=== PATIENT | male | born 1960 | race Caucasian/White ===

== ENCOUNTER 2017-12-16 09:40 | Emergency (ER) | payer MEDICAID ==
[~2017-12-16] VITALS: Ht 180.3 cm; Wt 81.7 kg
[~2017-12-16 09:40] MED LIST: ATIVAN1 MG PO; BUSPIRONE HCL10 MG PO; CARAFATE 1 GM TA1 G1 PO; DEXILANT60 MG PO; FLEXERIL PO; GABAPENTIN 100100 MG PO; HYDROCODONE-AP1 EAC6 PO; KEFLEX500 MG PO; KLOR-CON 1010 MEQ PO; LASIX 20 MG TAB20 MG PO; LEVAQUIN 500 M500 M2 PO; MAGOX 400400 MG PO; MOBIC15 MG PO; NOHOMEMEDICATIONS; OMEPRAZOLE40 MG PO; PANTOPRAZOLE SO40 M1 PO; POTASSIUM20 PO; PRILOSEC 20 MG20 MG PO; PROTONIX40 M1 PO; SLEEPING PILL PO; TRAMADOL 50 MG50 MG PO; XANAX 0.5 MG0.5 M1 PO; XANAX 0.5 MG0.5 MG PO; XANAX1 MG PO; ZOFRAN ODT4 MG PO; ZOLOFT25 MG PO
[2017-12-16 09:47] VITALS: BP 140/84
[2017-12-16] MEDS ORDERED: FLEXERIL PO (09:57)
[2017-12-16] MEDS ORDERED: ULTRAM 50MG TAB50 MG PO (09:57)
[2017-12-16] MEDS ORDERED: PREDNISONE 20 M20 M1 PO (09:57)
== END 2017-12-16 10:13 | disposition home or self-care (01) ==
LOC: M.ERS 09:40
DX: M54.5 Low back pain (principal); M41.9 Scoliosis, unspecified; F17.210 Nicotine dependence, cigarettes, uncomplicated; Z90.49 Acquired absence of other specified parts of digestive tract

== ENCOUNTER 2018-08-26 15:41 | Emergency (ER) | payer OTHER | END 2018-08-26 17:26 | disposition home or self-care (01) | LOC: M.ERS 15:41 | DX: S16.1XXA Strain of muscle, fascia and tendon at neck level, initial encounter (principal); S00.83XA Contusion of other part of head, initial encounter; M54.6 Pain in thoracic spine; M41.9 Scoliosis, unspecified; F17.210 Nicotine dependence, cigarettes, uncomplicated; Z90.49 Acquired absence of other specified parts of digestive tract; W22.8XXA Striking against or struck by other objects, initial encounter; Y93.89 Activity, other specified; Y92.89 Other specified places as the place of occurrence of the external cause; Y99.8 Other external cause status ==

== ENCOUNTER 2018-12-29 11:30 | Inpatient (IN) | payer OTHER, MEDICAID ==
[~2018-12-29] VITALS: Ht 180.3 cm; Wt 67.1 kg
[2018-12-29] VITALS (10 sets, daily range): BP systolic 93–124; BP diastolic 70–87
--- NOTE | ~2018-12-29 | PROC ---
[facility] [address] [place] [address] PROCEDURE REPORT Name: KEYLA LOPEZ Room: [facility] ADM IN M.R.#: [id number] Admission: 12/29/18 Attend Phys: Ramon Wright Discharge: Date of : 64 Report #: [id number] THIS REPORT FOR: //name// For GI report, please see the Provation report in Perceptive 7 content. By: 0649Medical Records Staff KEMAL /LIZZETTE
[~2018-12-29 11:30] MED LIST changes: +ACETAMINOPHEN-1 EAC1 PO; +PREDNISONE 20 M20 M1 PO; +ULTRAM 50MG TAB50 MG PO
[2018-12-29 12:19] LABS: HEMATOCRIT 38.9 % (42.0-52.0); HEMOGLOBIN 14.3 gm/dL (14.0-18.0); MCH 35.5 pg (26.0-34.0); MCHC 36.7 g/dL (28.0-37.0); MCV 96.5 fL (80.0-100.0); MPV 7.3 fl. (7.2-11.1); NUCLEATED RBCS 0 /100WBC; PLATELET COUNT* 261 thou/uL (150-400); RBC 4.03 mil/uL (4.50-6.00)
[2018-12-29 12:28] LABS: CALCIUM 10.1 mg/dL (8.5-10.1); CREATININE 1.2 mg/dL (0.6-1.3)
[2018-12-29 12:32] LABS: BE -1.5 mmol/L (-2 to +3); PCO2 28.2 mmHg (35.0-45.0); pH 7.482 (7.340-7.450)
[2018-12-29 12:33] LABS: POTASSIUM 2.4 mmol/L (3.5-5.1)
[2018-12-29 12:35] LABS: PO2 154.7 mmHg (75.0-100.0)
[2018-12-29 12:37] LABS: APTT 26.6 Seconds (25.0-31.3)
[2018-12-29 12:38] LABS: ALBUMIN 2.7 g/dL (3.4-5.0); MAGNESIUM 1.7 mg/dL (1.8-2.4); TOTAL BILIRUBIN 1.1 mg/dL (<0.1-1.0); TOTAL PROTEIN 8.2 g/dL (6.4-8.2)
[2018-12-29 13:03] LABS: INFLUENZA A ANTIGEN Negative (Negative); INFLUENZA B ANTIGEN Negative (Negative)
[2018-12-29 13:44] LABS: ABSOLUTE LYMPHOCYTES 0.4 thou/uL (0.8-5.3); ABSOLUTE MONOCYTES 0.8 thou/uL (0.0-1.2); ABSOLUTE NEUTROPHILS 8.8 thou/uL (1.6-8.1); PLATELET ESTIMATE ADEQUATE
--- NOTE | 2018-12-29 17:12 | EKG ---
[place] [address] ELECTROCARDIOGRAM REPORT Name: KEYLA LOPEZ Room: [address] ADM IN .R.#: [id number] Admission: 12/29/18 Attend Phys: Ramon Wright Discharge: Date of : 64 Report #: [id number] THIS REPORT FOR: //name// [facility] ED Test Date: 2018-12-29 Test Time: 11:41:43 Pat Name: KEYLA LOPEZ Department: Room: [facility] Gender: M Clinical Immunologist: : 1960 Requested By: Cceilio Cherry Order Number: [id number] MD: Malcolm Guevara Measurements Intervals [place] Rate: 94 P: 86 MS: 146 QRS: 72 QRSD: 85 T: 263 QT: 344 QTc: 431 Interpretive Statements Sinus tachycardia Atrial premature complexes Probable left atrial enlargement Possible anterior infarct, old Abnormal T, consider ischemia, diffuse leads Compared to ECG 12/06/2016 22:34:26 Atrial premature complex(es) now present Myocardial infarct finding now present ST (T wave) deviation now present T-wave abnormality now present Possible ischemia now present Electronically Signed On 12-29-2018 17:12:03 [employer] TE[employer] by Malcolm Guevara [email or web address] <ELECTRONICALLY SIGNED> By: Malcolm Guevara MD, FACC 12/29/18 1712 1141 1141 Malcolm Guevara MD, FAC /EPI
--- NOTE | 2018-12-29 18:00 | NUR ---
PT RECEIVED FROM ER AT 1608, A&O X4. AIRBORNE PRECAUTIONS FOR SUSPECTED TB INITIATED. VSS. ELECTROLYTES REPLACEMENT CONTD. VOIDS PER URINAL. ATE 5% OF HIS DINNER. ADMISSION PROCESS COMPLETED.
[2018-12-29 19:26] LABS: CALCIUM 9.2 mg/dL (8.5-10.1); CREATININE 1.1 mg/dL (0.6-1.3); MAGNESIUM 1.6 mg/dL (1.8-2.4)
[2018-12-29 19:27] LABS: POTASSIUM 2.5 mmol/L (3.5-5.1)
[2018-12-30] VITALS (16 sets, daily range): BP systolic 104–123; BP diastolic 73–84
[2018-12-30 05:39] LABS: CALCIUM 9.2 mg/dL (8.5-10.1)
[2018-12-30 05:43] LABS: POTASSIUM 4.2 mmol/L (3.5-5.1)
--- NOTE | 2018-12-30 06:31 | NUR ---
ASSESSMENTS CHARTED. PATIENT REMAINED IN BED FOR DURATION OF THE SHIFT AND SLEPT FOR ABOUT 3 HOURS. PATIENT STILL HAS DIFFICULTY SWALLOWING UNLESS HE IS TAKING IN WARM LIQUIDS. PATIENT HAS DIFFICULTY SWALLOWING PILLS, FOR THIS REASON ELECTROLYTES WERE REPLACED SOLELY THROUGH THE IV. PATIENT HAS BEEN EXPERIENCING PAIN IN THE NECK AND HEAD, ADMINISTERED ONETIME DOSE OF MORPHINE. AWAITING RESPONSE FROM PHYSICIAN FOR SUBSEQUENT DOSES. PATIENT USING URINAL WELL. REMAINS IN ISOLATION PRECAUTIONS. [facility]
--- NOTE | 2018-12-30 08:37 | NUR ---
LATE ENTRY FOR 12/29 FROM ER ASKING CM TO BRING DPOA PAPERS TO PT. HE WOULD LIKE TO FILL OUT DPOA. FAMILY WITH PT. INFORMED HE WOULD BE TRANSFERRING TO ICU ANYTIME. CM WENT TO ICU AND PT.NOT THERE YET. LEFT DPOA FORM WITH JASON AND ASKED SHE GIVE TO PT.AND/OR FAMILY . CALL FOR NOTARY BEFORE PT.SIGNS.
[2018-12-30 10:04] LABS: ABSOLUTE LYMPHOCYTES 0.1 thou/uL (0.8-5.3); ABSOLUTE MONOCYTES 0.2 thou/uL (0.0-1.2); ABSOLUTE NEUTROPHILS 6.2 thou/uL (1.6-8.1); BASOPHILS 0.1 %; HEMATOCRIT 32.7 % (42.0-52.0); HEMOGLOBIN 11.8 gm/dL (14.0-18.0); LYMPHOCYTES 2.3 %; MCH 35.1 pg (26.0-34.0); MCV 97.5 fL (80.0-100.0); MONOCYTES 2.3 %; MPV 7.3 fl. (7.2-11.1); NUCLEATED RBCS 0 /100WBC; PLATELET COUNT* 209 thou/uL (150-400); POLYS 95.3 %; RBC 3.36 mil/uL (4.50-6.00); RDW-CV 12.1 % (10.5-14.5); WBC 6.5 thou/uL (4.0-11.0)
--- NOTE | 2018-12-30 11:28 | NUR ---
ICU rounds: Pt has not been eating for the past 3 weeks. Pt to have video swallow today. Continue banana bag and saline. On airborne precautions d/t lung mass, possible undx TB. Pending sputum, respiratory to see. DPOA completed yesterday. No roseann. Spoke with , anticipate that Pt [place] need [place] Tele status. Pt completing testing in room, CM to attempt to assess later
--- NOTE | 2018-12-30 13:34 | NUR ---
RIGHT BASILIC VESSEL ACCESSED FOR DUAL LUMEN PICC. LINE PRE-TRIMMED TO 40CM AND ADVANCED TO THE ZERO KEYLA WITH NO RESISTANCE MET. UPPER ARM CIRCUMFERENCE ABOVE INSERTION SITE= 9". SHERLOCK MAGNET AND 3CG CONFIRMATION OF TIP TERMINATION AT THE CAVOATRIAL JUNCTION APPRECIATED. STYLET REMOVED, LINE FLUSHED AND INSERTION SITE DRESSED. REPORT GIVEN TO JASON FRANCO.
--- NOTE | 2018-12-30 15:00 | NUR ---
URINE RESIDUAL >250 MLS THREE TIMES AND PT IS INCONTINENT. BARNES CATH, 16 FR INSERTED PER ORDER, DRAINING YELLOW URINE.
--- NOTE | 2018-12-30 17:17 | NUR ---
PASSED SWALLOW TEST AND DYSPHAGIA MORE RELATED TO PAIN PER SPEECH THERAPIST. VSS. O2 SUPPORT AT 2L/MIN. Q2 TURNS FOR SKIN INTEGRITY. SPUTUM CULTURE AND AFB PENDING PT NOT EXPECTORATING ANY SPUTUM. ISOLATION MAINTAINED. FAMILY UPDATED. NS CONTD AT 100 MLS/HR AND MULTIVITAMIN AT 40 MLS/HR. GOOD URINE OUTPUT.
[2018-12-31 02:10] LABS: GLYCOHEMOGLOBIN (HGB A1C) 5.8 % (4.8-5.6)
[2018-12-31 03:31] LABS: HEMOGLOBIN 10.3 gm/dL (14.0-18.0); MCH 35.3 pg (26.0-34.0); MCHC 35.5 g/dL (28.0-37.0); MCV 99.3 fL (80.0-100.0); MPV 6.8 fl. (7.2-11.1); RBC 2.92 mil/uL (4.50-6.00); RDW-CV 12.1 % (10.5-14.5); WBC 7.2 thou/uL (4.0-11.0)
[2018-12-31 03:40] LABS: CALCIUM 8.1 mg/dL (8.5-10.1); CREATININE 0.9 mg/dL (0.6-1.3); POTASSIUM 3.9 mmol/L (3.5-5.1)
--- NOTE | 2018-12-31 05:48 | NUR ---
ASSESSMENT CHARTED. PATIENT REMAINED IN BED POSITIONED COMFORTABLY THROUGH THE SHIFT. PATIENT REMAINED NPO FOR THE NIGHT. DURING MIDNIGHT DOSE OF NYSTATIN, THE PATIENT SWALLOWED HALF THE DOSE AND NEARLY ASPIRATED WHAT WAS LEFT. FOR THIS REASON, THE 0600 DOSE WAS HELD. PATIENT HAS BEEN INCREASINGLY WITHDRAWN. CATHETER IN PLACE, NO URNIE OUTPUT RECORDED FOR THE SHIFT. BLADDER SCAN INDICATES SCANT AMOUNT OF URINE IN BLADDER.
[2018-12-31 08:00] VITALS: BP 116/75
--- NOTE | 2018-12-31 08:09 | CON ---
[address] [address] CONSULTATION Name: KEYLA LOPEZ Tiffanie Room: [address] IN M.R.#: [id number] Admission: 12/29/18 Attend Phys: Ramon Wright Discharge: Date of : 64 Report #: [id number] THIS REPORT FOR: //name// CC: Shai Villarreal DATE OF SERVICE: 12/30/2018 REQUESTING PHYSICIAN: Foster Villarreal DO REASON FOR CONSULTATION: Cavitary lesion, right upper lobe. DISCUSSION: The patient is a 58-year-old man with a past history of alcohol and tobacco abuse. Unfortunately, he is not a very good historian and is somewhat vague with his responses. He presented to the Emergency Department yesterday with complaints of increasing weakness, shortness of breath, difficulty swallowing. He has felt nauseated, but has been unable to vomit. He has had some right-sided chest pain. He is not aware of any fevers at home. Denies coughing up any sputum. Consequently, no hemoptysis. He notes he has felt like he needed to vomit, but has been unable to do so. He has not noted any blood in his stools. He has had difficulty trying to take much to eat. Unknown when he last had true solid food. He has been drinking primarily warm beverages. He states he has lost about 20 pounds over the last several weeks. Saw his family physician several weeks ago. Some of the history I obtained is different than what the ED did as well as Dr. Villarreal. Again, however, question some of the reliability. He does have a history of alcohol abuse, but notes his last drink was about 7 months ago. Longtime smoker, though it has been several weeks since he has had a cigarette due to increased shortness of breath. He was in the process of cutting back. When he was evaluated in the Emergency Department, was found to be hyponatremic with sodium down to 119. Some of his LFTs were abnormal. White count was normal. He was not anemic. Imaging studies were done. No pulmonary emboli were noted. Did have a thick-walled right upper lobe cavitary lesions seen. There is evidence of old calcified granulomatous disease as well. This was not seen on CT chest done 2 years ago. He denies any history of TB or exposure to tuberculosis. Reviewing old records in our computer system here, he did have a negative T-SPOT in 2017. He notes he was in [facility] about 3 weeks ago, but it was for only a day. From the history I get, it does not appear he has had any prolonged episodes of incarceration. No service. 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 The history, we have, he was last hospitalized here [place] [address] CONSULTATION Name: EUNKEYLA CAMEJO Tiffanie Room: [address] IN [facility].#: [id number] Admission: 12/29/18 Attend Phys: Ramon Wright Discharge: Date of : 64 Report #: [id number] found to have significant esophagitis. However, could not afford to take a b.i.d. PPI. EGD done at that time did reveal also a stricture in the distal esophagus. They were unable to dilate well. He had a distal esophageal ulcer. It does not appear that he had any followup endoscopies done. He does have chronic back pain, prior episodes of GI bleeding, pancreatitis, acute renal failure in the past, history of DTs associated with alcohol withdrawal and seizures. Has scoliosis and has had back surgery. REVIEW OF SYSTEMS: ROS was done. States he has lost about 20 pounds over the last several weeks. Denies vomiting to me, but the ED notes indicate that he was vomiting. He notes he has had trouble remembering things been short of breath. Besides chronic back pain, he has also had some right chest pain. He has felt nauseated. Denies blood in his stools. He did have onset of lower extremity edema. He has not had any recent dental work done or seen a dentist. He denies any syncopal episodes. Denies recent falls. SOCIAL HISTORY: States he lives alone. No alcohol for 7 months. He is wearing an ankle bracelet to monitor him for alcohol consumption. He is in [facility] briefly about 3 weeks ago per patient. FAMILY HISTORY: Denies any lung problems. PHYSICAL EXAMINATION: GENERAL APPEARANCE: A male who looks older than stated age. Somewhat lethargic, but is responsive. At times, is slow to respond to the questions. HEENT: Head is normocephalic. Sclerae nonicteric. Mucous membranes are dry. dentition is poor. Does have evidence of some oral candidiasis. NECK: Without any cervical adenopathy. Neck veins are little prominent. No supraclavicular adenopathy. HEART: Regular. No S3 is heard. He has a grade 1/6 systolic murmur. LUNGS: Reveal breath sounds to be somewhat diminished with a prolonged expiratory phase. No wheezing or crackles are heard. No rub. ABDOMEN: Soft. Denies any tenderness to palpation. EXTREMITIES: Upper extremities are thin with muscle wasting. He does have trace edema in the lower extremities. SKIN: Turgor is fair. LABORATORY AND X-RAY FINDINGS: Admission sodium yesterday was 119 up to 122 today. Creatinine was 1.2 yesterday, improved to 1.0 today. Serum bicarbonate this morning is 13. Transaminases are normal. Total bilirubin was 1.1. Albumin is 2.7, total protein is 8.2, calcium 10.1. ProBNP just over 1500. White blood cell count yesterday 10,000, today 6500, hemoglobin 11.8, hematocrit of 32.7, platelets 209,000. Does have a left shift. Appears to have a lymphopenia noted previously. Influenza screen was negative. Prealbumin is only 8.4. A T-SPOT 2017 was negative. HIV done 2 years ago was negative. Blood cultures were sent, no growth to date. I do note [place] [address] CONSULTATION Name: KEYLA LOPEZ Room: [address] IN [facility]#: [id number] Admission: 12/29/18 Attend Phys: Raomn Wright Discharge: Date of : 64 Report #: [id number] in 2017. At that time, he had preserved systolic function with an EF of 55%. RV was normal. He had [id number] aortic regurgitation. There was no aortic stenosis. His films were reviewed. A CT chest done yesterday with contrast was negative for evidence of pulmonary embolism. He has a thick-walled cavity, right upper lobe. It is adjacent to the pleura. This cavitary mass was not seen [address] chest imaging at that time. He had however CT scans done of his cervical and thoracic spine in August of this year. I reviewed those studies, I do not see any lesions in the right upper lobe. Though the area in question is not completely visible on those studies, none of it certainly does not appear that it was present. It is also noted to have marked thickening of his esophagus. Scan done of his abdomen showed possible liver lesion, not noted previously. Areas of mildly dilated small bowel were noted suspicious for an ileus or enteritis. IMPRESSION: 1. A thick walled cavity, right upper lobe. It does not appear that it was present in August of this year on bone imaging studies. If that is the case, would think malignancy would be somewhat less likely given the large size of this mass. Raise the question of an infectious or inflammatory process. Right upper lobe cavitary lesions can be suspicious for tuberculosis. Do note TB SPOT done 2 years ago, however, was negative. With his history, does appear that he is at very high risk for aspiration. Between his dysphagia as well as severe esophagitis. Prior HIV testing was negative. 2. Protein-calorie malnutrition. Note low albumin. However, does appear to have a higher protein and what would be expected. Calcium level though in the "normal range" probably actually higher given the low albumin level. 3. Hyponatremia, improving. 4. History of alcohol abuse. Reportedly, has been off alcohol for 7 months. If that is the case, not likely to have issues with withdrawal, etc. 5. History of tobacco abuse. 6. Weight loss, it is difficult to truly quantitate how much. He has been reviewing his old weights in the computer system here, there are such huge swings in relatively short periods of time. I questioned the reliability of those. This can be due to poor caloric intake. Could also have an occult malignancy. RECOMMENDATIONS: 1. Discussed with Dr. Da Silva. Can transfer out of ICU. 2. Check QuantiFERON Gold. 3. Sputum cultures if able to obtain. 4. Also check fungal serology. 5. Follow up lab and culture results. 6. Agree with rechecking HIV. 7. At this point, would hold on any type of a biopsy of this right upper lobe lesion. Would not be accessible via bronchoscopy. Could consider having IR evaluate in the future. [address] [address] CONSULTATION Name: KEYLA LOPEZ Room: [address] ADM IN M.R.#: [id number] Admission: 12/29/18 Attend Phys: Ramon Wright Discharge: Date of : 64 Report #: [id number]. May also need a followup EGD done. Metabolically, however, would need to be better condition. <ELECTRONICALLY SIGNED> By: Destiny Campbell MD 12/31/18 0809 1139 [id number] Campbell MD /nt
[2018-12-31 10:09] LABS: HEPATITIS B SURFACE AG Negative (Negative)
[2018-12-31 10:09] LABS: HIV-1/HIV-2 ANTIBODY Non Reactive (Non Reactive)
--- NOTE | 2018-12-31 10:23 | NUR ---
ICU rounds: Pt not as alert today. EGD today. Tele status, moving to room 200. CM left VM for Pt's sister/DPOA to complete assessment, awaiting call back
--- NOTE | 2018-12-31 10:47 | NUR ---
PER [employer], PT HAS MONTHLY [place] MEDICAID WITH A SPEND DOWN. ONCE SPEND DOWN MET, PT HAS COVERAGE EACH MONTH
--- NOTE | 2018-12-31 11:15 | NUR ---
ASSUMED PT CARE AT APPROX 1115, RECVD REPORT FROM JOAN APONTE. THIS NURSE AGRRES WITH CURRENT ASSESSMENT. ORIENTED TO CALL LIGHT AND ROOM, SISTER AT BEDSIDE.
--- NOTE | 2018-12-31 11:16 | NUR ---
THIS PROJECT CREW WORKER ASSUMED CARE OF PT AT 0700 AFTER RECEIVING SHIFT REPORT. PT WAS TRANSFERED TO ROOM [address] ZIEGLER PT BELONGING AND MEDICATION WITH PT TRANSFERED VIA WHEELCHAIR WITH NURSING STAFF
--- NOTE | 2018-12-31 15:29 | CON ---
[address] [address] CONSULTATION Name: KEYLA LOPEZ Tiffanie Room: [address] IN .R.#: [id number] Admission: 12/29/18 Attend Phys: Ramon Wright Discharge: Date of : 64 Report #: [id number] THIS REPORT FOR: //name// CC: Shai Villarreal DICTATED BY: Laura Adams [facility] DATE OF SERVICE: 12/31/2018 The patient does not have a PCP. Please note at the time of this dictation, the patient was seen and physically examined by myself. REASON FOR CONSULTATION: Dysphagia, odynophagia. HISTORY OF PRESENT ILLNESS: This 58-year-old male who presented to the Emergency Room with worsening cough, shortness of air over the last 3 weeks. He states he has been having a progressive difficulty swallowing and pain with swallowing over the last 3-4 weeks in which he has only been able to take liquids in and has not been able to do any solids. The patient states he quit smoking about 3 weeks ago and he quit drinking 7 months ago. He states he has an ankle monitor that alerts people if he drinks. He has lost approximately 30 pounds over the last month. He states he has not been able to eat any solid foods and when he does, he does vomit them up. He has significant hunger pains, but has only been drinking liquids. He denies any chest pain or melena at this time, but worsening with shortness of air with movement. The patient has been seen in the past by us with the last time being in 11/2016. It was noted that he underwent an EGD, had distal esophageal ulcer with stricture that was dilated with the CRE balloon at 15 mm and biopsy, small hiatal hernia. He was recommended on double dose PPI and Carafate. He has had numerous other endoscopies showing grade D esophagitis as well in 2016 and 2017. No mention of a colonoscopy, he has ever been performed. ALLERGIES: No known drug allergies. MEDICATIONS: From home is omeprazole 1 tablet b.i.d. PAST MEDICAL HISTORY: Esophagitis, hiatal hernia, macular degeneration, portal hypertensive gastropathy, esophageal ulcers and strictures. 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 PAST SURGICAL HISTORY: Appendectomy, rods in his back. FAMILY HISTORY: Negative for any GI [place] [address] CONSULTATION Name: KEYLA LOPEZ Tiffanie Room: [address]#: [id number] Admission: 12/29/18 Attend Phys: Ramon Wright Discharge: Date of : 64 Report #: [id number] SOCIAL HISTORY: The patient states he quit smoking, but past use alcohol. He states that he quit drinking 7 months ago and denies any illegal drug use. REVIEW OF SYSTEMS: 12-point review of systems is essentially negative except what is mentioned in the HPI. PHYSICAL EXAMINATION: VITAL SIGNS: Temperature 36.8, pulse 76, respirations 15, blood pressure 110/78. HEART: Regular rate and rhythm. LUNGS: Diminished, especially in the right upper. ABDOMEN: Soft, positive bowel sounds in all 4 quadrants with no masses or tenderness noted. LABORATORY DATA: Hemoglobin on admission was 11.8, he is 10.3; white count is 7.2, platelets 182. GFR is 87. B12 is 1195. LFTs are completely normal. PT is 10. INR is 1. He did have an elevated D-dimer 2.96. CT of the abdomen and pelvis shows a liver lesion in the left lobe noted. 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 IMPRESSION: 1. Dysphagia. 2. Odynophagia. 3. Vomiting with solids. 4. Weight loss 30 pounds. 5. Shortness of air. 6. Anemia, no overt bleeding noted. 7. History of alcohol abuse, quit 7 months ago. PLAN: 1. EGD today with Dr. Romero. 2. Further recommendations to be made once the procedure has been performed. 3. Ultrasound of the abdomen to evaluate liver lesion. Thank you for allowing us to participate in this patient's care. Please do not hesitate to call with any questions in regard to this consult. Patient with history of dysphagia and weight loss. Cavitary lesion in the lung suspicious for TB. Will wait for them to rule out [place] [address] CONSULTATION Name: KEYLA LOPEZ Room: [address] IN [facility]#: [id number] Admission: 12/29/18 Attend Phys: Ramon Wright Discharge: Date of : 64 Report #: [id number] evaluation. Otherwise agree with assessment and plan as outlined by Laura Adams. <ELECTRONICALLY SIGNED> By: Carrillo Romero MD 12/31/18 1529 0956 [id number] Romero MD /nt
[2019-01-01] VITALS: BP 129/97
[2019-01-01 04:00] VITALS: BP 117/77
--- NOTE | 2019-01-01 04:44 | NUR ---
ASSUMED CARE OF PT AT 1900. PT IS CONFUSED. ORIENTED TO SELF ONLY. PT REPORTS ONGOING PAIN. PT GETTING MORPHINE FOR PAIN. PT IS IN SINUS RYTHM ON THE TELEMETRY. PT IS RESTING COMFORTABLY IN BED. RESPIRATIONS ARE EVEN AND NONLABORED. WILL CONTINUE TO MONITOR PT.
--- NOTE | 2019-01-01 13:47 | 2DMMODE ---
[place] [address] 2 D/M-MODE ECHOCARDIOGRAM Name: KEYLA LOPEZ Room: [address] IN [facility]#: [id number] Admission: 12/29/18 Attend Phys: Foster Villarreal Discharge: Date of : 64 Date of Service: 01/01/19 1346 Report #: [id number] THIS REPORT FOR: //name// APPROVED REPORT Study performed: 01/01/2019 09:48:16 EXAM: Comprehensive 2D, Doppler, and color-flow Echocardiogram Patient Location: In-Patient Room #: 200 Status: routine BSA: 1.82 HR: 81 bpm BP: 117/77 mmHg Rhythm: NSR Other Information Study Quality: Good Indications COPD Dyspnea 2D Dimensions IVSd: 8.03 (7-11mm) LVOT Diam: 21.84 (18-24mm) LVDd: 49.15 mm PWd: 8.17 (7-11mm) Ascending Ao: 33.24 (22-36mm) LVDs: 32.30 (25-40mm) Aortic Root: 34.71 mm Volumes Left Atrial Volume (Systole) LA ESV Index: 21.10 mL/m2 Aortic Valve AoV Peak Javier.: 1.03 m/s AO Peak Gr.: 4.27 mmHg LVOT Max P.84 mmHg AO Mean Gr.: 2.14 mmHg LVOT Mean P.30 mmHg LVOT Max V: 0.84 m/s AO V2 VTI: 21.75 cm LVOT Mean V: 0.52 m/s ANDREA (VTI): 2.88 cm2 LVOT V1 VTI: 16.72 cm Mitral Valve E/A Ratio: 1.60 MV Decel. Time: 142.96 [place] [address] 2 D/M-MODE ECHOCARDIOGRAM Name: KEYLA LOPEZ Room: [address] IN .R.#: [id number] Admission: 12/29/18 Attend Phys: Foster Villarreal Discharge: Date of : 64 Date of Service: 01/01/19 1346 Report #: [id number] MV E Max Javier.: 0.92 m/s MV PHT: 41.46 ms MVA (PHT): 5.31 cm2 TDI E/Lateral E': 8.36 E/Medial E': 8.36 Medial E' Javier.: 0.11 m/s Lateral E' Javier.: 0.11 m/s Pulmonary Valve PV Peak Javier.: 0.72 m/s PV Peak Gr.: 2.04 mmHg Tricuspid Valve RAP Estimate: 5.00 mmHg TR Peak Gr.: 26.43 mmHg RVSP: 31.00 mmHg PA Pressure: 31.00 mmHg Left Ventricle The left ventricle is normal size. There is normal LV segmental wall motion. There is normal left ventricular wall thickness. Left ventricular systolic function is normal. The left ventricular ejection fraction is within the normal range. LVEF is 55-60%. The left ventricular diastolic function is normal. Right Ventricle The right ventricle is normal size. The right ventricular systolic function is normal. Atria The left atrium size is normal. The right atrium size is normal. Aortic Valve Aortic valve leaflets are mildly thickened. Mild aortic regurgitation. There is no aortic valvular stenosis. Mitral Valve The mitral valve is normal in structure. Mild mitral regurgitation. No evidence of mitral valve stenosis. Tricuspid Valve The tricuspid valve is normal in structure. Mild tricuspid regurgitation. Mild pulmonary hypertension. Pulmonic Valve The pulmonary valve is normal in structure. [place] [address] 2 D/M-MODE ECHOCARDIOGRAM Name: KEYLA LOPEZ Room: [address]#: [id number] Admission: 12/29/18 Attend Phys: Foster Villarreal Discharge: Date of : 64 Date of Service: 01/01/19 1346 Report #: [id number] valvular regurgitation. Great Vessels The aortic root is normal in size. IVC is normal in size and collapses >50% with inspiration. Pericardium There is no pericardial effusion. <Conclusion> The left ventricle is normal size. There is normal left ventricular wall thickness. Left ventricular systolic function is normal. The left ventricular ejection fraction is within the normal range. LVEF is 55-60%. The left ventricular diastolic function is normal. The right ventricle is normal size. The left atrium size is normal. Aortic valve leaflets are mildly thickened. Mild aortic regurgitation. There is no aortic valvular stenosis. The mitral valve is normal in structure. Mild mitral regurgitation. The tricuspid valve is normal in structure. Mild tricuspid regurgitation. Mild pulmonary hypertension. IVC is normal in size and collapses >50% with inspiration. There is no pericardial effusion. There is normal LV segmental wall motion. <ELECTRONICALLY SIGNED> By: Hector Gregg MD, FACC 01/01/19 1346 1346 1346 Hector Gregg MD, FACC /INF
--- NOTE | 2019-01-01 14:04 | NUR ---
CM attempted to reach sister again, per Pt's brother in law, sister is at work. Pt was independent with meals, but sister assisted with cleaning and driving, Pt has lost his license. JENY to have sister call Cm.
[2019-01-01 16:48] LABS: HEMATOCRIT 28.3 % (42.0-52.0); HEMOGLOBIN 9.9 gm/dL (14.0-18.0); MCH 35.4 pg (26.0-34.0); MCHC 34.9 g/dL (28.0-37.0); MCV 101.6 fL (80.0-100.0); MPV 6.5 fl. (7.2-11.1); RBC 2.79 mil/uL (4.50-6.00); RDW-CV 12.5 % (10.5-14.5); WBC 8.1 thou/uL (4.0-11.0)
[2019-01-01 16:57] LABS: CREATININE 0.9 mg/dL (0.6-1.3); POTASSIUM 3.2 mmol/L (3.5-5.1)
--- NOTE | 2019-01-01 19:05 | NUR ---
ASSUMED PT CARE AT 0700, VSS, RA, INSTRUMENT REPAIR SPECIALIST TRACING SINUS RHYTHM. PT A&O TO SELF ONLY, STILL UNABLE TO SWALLOW FOODS/FLUIDS, EGD COMPLETED THIS SHIFT, RESULTS PENDING. EDUCATED NIGHT NURSE ON REQUESTING NUTRITION OF SOME SORT POST EGD. PT HAS STILL NOT HAD BM DISPITE SUPPOSITORY AND ENEMA. NOTIFIED, HOURLY ROUNDING AND Q2 HOUR TURNS COMPLETED.
[2019-01-02] VITALS: BP 137/95
--- NOTE | 2019-01-02 04:20 | NUR ---
ASSUMED CARE OF PT FROM THE GI LAB AT ABOUT 2130. PT WAS ALERT AND ORIENTED X 3. CONFUSED TO SITUATION. VSS. PERRLA. NO COMPLAINTS OF PAIN. PT IS UP WITH STAND BY ASSIST. PT HAS A BARNES. PT IS IN SINUS RYTHM ON THE TELEMETRY. PT IS RESTING COMFORTABLY IN BED. RESPIRATIONS ARE EVEN AND NONLABORED. WILL CONTINUE TO MONITOR PT.
--- NOTE | 2019-01-02 05:53 | NUR ---
PT IS NOW REFUSING MEDS AND IV FLUIDS. RISKS OF REFUSAL EXPLAINED TO PT. PT YELLED FOR ME TO LEAVE HIS ROOM.
[2019-01-02 08:00] VITALS: BP 118/83
[2019-01-02 08:11] LABS: CALCIUM 8.3 mg/dL (8.5-10.1); CREATININE 0.9 mg/dL (0.6-1.3); MAGNESIUM 1.8 mg/dL (1.8-2.4)
[2019-01-02 12:00] VITALS: BP 121/85
[2019-01-02 16:00] VITALS: BP 103/71
--- NOTE | 2019-01-02 18:30 | NUR ---
RECEIVED REPORT FROM LASHAWN FRANCO. ASSUMED CARE OF PT AROUND 0730. PT ALERT TO SELF, MONTH AND YEAR, CONFUSED TO SITUATION. FORGETFUL. VSS. COMMUNITY CULTURAL DEVELOPMENT OFFICER IN PLACE TRACING SR TO ST WITH NO CHANGES THIS SHIFT. AM ASSESSMENT AND VITALS COMPLETED CHARTED. BOLA PICC INTACT AND INFUSING IVF PER EMAR. PT HAD TWO WATERY BMS THIS SHIFT. ISOLATION MAINTAINED. POOR APPETITE, THOUGH PT HAS BEEN ABLE TO TOLERATE FULL LIQUID DIET AND HAS BEEN ABLE TO SWALLOW PILLS. PT HAS DENIED PAIN THIS SHIFT. CT HEAD AND XRAY CHEST COMPLETED. SEE RESULTS. PT HOPING TO GO HOME SOON. FALL PRECAUTIONS IN PLACE. CALL LIGHT IS WITHIN REACH. HOURLY ROUNDING PERFORMED.
[2019-01-02 19:40] VITALS: BP 115/84
[2019-01-03] VITALS (8 sets, daily range): BP systolic 73–111; BP diastolic 39–72
[2019-01-03 05:09] LABS: HEMATOCRIT 27.7 % (42.0-52.0); HEMOGLOBIN 9.7 gm/dL (14.0-18.0); MCH 34.9 pg (26.0-34.0); MCV 99.6 fL (80.0-100.0); MPV 7.2 fl. (7.2-11.1); RBC 2.78 mil/uL (4.50-6.00); RDW-CV 12.6 % (10.5-14.5); WBC 5.9 thou/uL (4.0-11.0)
[2019-01-03 05:47] LABS: ALBUMIN 1.9 g/dL (3.4-5.0); CREATININE 0.9 mg/dL (0.6-1.3); MAGNESIUM 1.6 mg/dL (1.8-2.4); TOTAL BILIRUBIN 0.5 mg/dL (<0.1-1.0); TOTAL PROTEIN 4.9 g/dL (6.4-8.2)
[2019-01-03 05:48] LABS: POTASSIUM 4.3 mmol/L (3.5-5.1)
--- NOTE | 2019-01-03 09:13 | CON ---
[address] [address] CONSULTATION Name: KEYLA LOPEZ Room: [facility] IN M.R.#: [id number] Admission: 12/29/18 Attend Phys: Ramon Wright Discharge: Date of : 64 Report #: [id number] THIS REPORT FOR: //name// CC: Shai Villarreal DATE OF SERVICE: 01/02/2019 INFECTIOUS DISEASE CONSULTATION ATTENDING PHYSICIAN: Foster Villarreal DO REASON FOR EVALUATION: Cavitary lung mass, right upper lobe. HISTORY OF PRESENT ILLNESS: Chart reviewed, the patient examined. This is a 58-year-old, had received initially several hospitalizations, has history of ethanol, is in portal hypertension with gastropathy, esophageal esophagitis, swelling issues, who was admitted through the Emergency Room with complaints of progressive dyspnea over the course of the last 3 weeks, weight loss, perhaps up to 50 pounds. He has had some eating difficulties. He was evaluated including upper endoscopy, which showed severe stricture of the distal esophagus. Course of the workup has had imaging of his chest, which showed a 4.6 x 5.0 cm cavitary mass in which thick-walled did not appear to have air fluid level, stable calcified granuloma. He was started empirically on therapy with fluconazole, piperacillin, tazobactam and received empiric vancomycin, Levaquin as well. Clinically, he has improved. On questioning, he denies any particular exposure history. He does have poor teeth. ALLERGIES: None known. CURRENT MEDICATIONS: Include methylprednisolone, famotidine, sucralfate, pantoprazole, Zosyn, fluconazole, lorazepam, p.r.n. analgesics, and antiemetics. PAST MEDICAL HISTORY: As described above, liver disease, portal hypertensive gastropathy, esophagitis, history of alcoholic seizures, macular degeneration, depression, anxiety, and previous appendectomy. SOCIAL HISTORY: Heavy drinker, discontinued, former smoker, although it has been within the last several weeks. He quit, had a 99-qssc-expn history. No illicit drug use. FAMILY HISTORY: Noncontributory. REVIEW OF SYSTEMS: He denies significant gastrointestinal-related complaints. It is certainly perhaps minimizing, reports of approximately 50-pound weight loss. He does have a cough that is nonproductive. [place] [address] CONSULTATION Name: KEYLA LOPEZ Tiffanie Room: [address]#: [id number] Admission: 12/29/18 Attend Phys: Ramon Wright Discharge: Date of : 64 Report #: [id number] dyspnea on room air. PHYSICAL EXAMINATION: GENERAL: He is alert, cooperative, appears to have flat affect. He is not overtly distressed. There is no evidence of cough during the exam. Appears undernourished. VITAL SIGNS: Weight 116 pounds and with hydration it went up to 136. Otherwise, temperature 97.8, pulse 103, respirations 15, and blood pressure 118/83. SKIN: Warm, dry, no rashes. HEENT: Otherwise, remarkable, normocephalic. Extraocular muscles intact. NECK: Supple. LUNGS: Diminished breath sounds. HEART: Regular. Borderline tachycardic. I do not appreciate any murmur. ABDOMEN: Soft, nontender, nondistended. GENITOURINARY: Deferred. RECTAL: Deferred. LABORATORY DATA: Electrolytes: Sodium 135, potassium 3.0, chloride 102, bicarbonate is 20, anion gap of 13, BUN and creatinine of 23 and 0.9. CBC: White count 8.1, H and H of 9.9 and 28.3, platelets of 171. HIV was negative. Acute hepatitis profile was negative. Abdominal ultrasound, slight amount of perihepatic fluid noted in the anterior surface of the liver. No focal liver lesions. Blood cultures are sterile thus far collected on the . Screening for MRSA was negative. ASSESSMENT AND PLAN: Cavitary lung mass. Likely, the main differentials including related to aspiration is clearly poor dentition. He has got swelling issues as well. Weight loss certainly is concerning. He has got a long-term history of smoking, can entirely exclude a carcinoma. The features somewhat variable in terms of pulmonary Mycobacterium tuberculosis, infection, agree with the isolation. We will await studies whether he will be able to collect sputum if not quite certain. We discussed with Pulmonary. May need a bronchoscopy. Prognosis appears guarded. <ELECTRONICALLY SIGNED> By: Vin Mata MD 01/03/19 0913 1134 [id number] Mata MD /nt
--- NOTE | 2019-01-03 18:55 | NUR ---
ASSUMED PT CARE AT 0730, FULL ASSESMENT DONE CHARTED. PT A/O X4, SOMETIMES A LITTLE FORGETFUL. PT PLEASANT, C/O SOME BACK PAIN, MEDS GIVEN PER APR. SR ON THE MONITOR. BP SOFT THIS EVENING, PT NON SYMPTOMATIC, BARNES IN PLACE, DEPENDENT TO DRAINAGE WITH YELLOW URINE. PT UP WITH ASSIST, WAS ABLE TO SHOWER TODAY, ISOLATION MAINTAINED. REPLACING MAGNESIUM. ADVANCED TO REGULAR DIET WITH NO MEAT. FALL PRECATUIONS MAINTAINED. WILL CONTINUE WITH PLAN OF CARE
[2019-01-04] VITALS: BP 95/68
--- NOTE | 2019-01-04 02:23 | NUR ---
PT ALERT ORIENTED FORGETFUL. UP WITH STD BY ASSIST. ON RA. PAIN IN BACK FLEXERIL AND TRAMADOL GIVEN. BRANES WITH CLEAR YELLOW. IN TB ISOLATION. TELEMETRY SHOWS SR. WCTM
[2019-01-04 04:00] VITALS: BP 102/75
[2019-01-04 05:45] LABS: HEMATOCRIT 26.1 % (42.0-52.0); HEMOGLOBIN 8.9 gm/dL (14.0-18.0); MCH 34.6 pg (26.0-34.0); MCHC 34.2 g/dL (28.0-37.0); MCV 101.1 fL (80.0-100.0); MPV 7.7 fl. (7.2-11.1); RBC 2.58 mil/uL (4.50-6.00); RDW-CV 12.6 % (10.5-14.5); WBC 4.7 thou/uL (4.0-11.0)
[2019-01-04 06:05] LABS: ALBUMIN 1.9 g/dL (3.4-5.0); CALCIUM 7.9 mg/dL (8.5-10.1); MAGNESIUM 1.5 mg/dL (1.8-2.4); POTASSIUM 4.3 mmol/L (3.5-5.1); TOTAL BILIRUBIN 0.3 mg/dL (<0.1-1.0); TOTAL PROTEIN 4.8 g/dL (6.4-8.2)
[2019-01-04 08:00] VITALS: BP 97/68
[2019-01-04 15:40] VITALS: BP 118/73
--- NOTE | 2019-01-04 19:39 | NUR ---
PT REMAINS IN ISOLATION, PROGRESSING TOWARD GOALS. PT UP WITH MINIMAL ASSIST, FALL PRECAUTIONS IN PLACE. UP TO COMRICK, BM TODAY, BARNES REMOVED, PT URINATED THIS EVENING. VSS, SR ON THE MONITOR THIS AM, TELE DC'D THIS AFTERNOON. PT EATIN WELL, NO MEAT. CALLS APPROPRIATLY FOR NEEDS. REPORT GIVEN TO BRIDGET FRANCO
[2019-01-04 20:00] VITALS: BP 114/56
[2019-01-05] VITALS: BP 105/71
--- NOTE | 2019-01-05 03:30 | NUR ---
ASSUMED PT CARE AT APPROX 1930. PT IS AWAKE AND ORIENTED X4. VSS ON ROOM AIR. PT IS MED SURG STATUS. C/O BACK PAIN RELIEVED BY TRAMADOL GIVEN PER APR. ORAL FLUIDS ENCOURAGED. PT IS ABLE TO SLEEP MOST OF THE NIGHT, AND IS ABLE TO MAKE NEEDS KNOWN. HIGH FALL PRECAUTIONS IN PLACE. CALL LIGHT WITHIN REACH. HOURLY ROUNDING DONE FOR PT SAFETY.
[2019-01-05 08:00] VITALS: BP 120/81
[2019-01-05 09:00] VITALS: BP 174/73
[2019-01-05 12:12] VITALS: BP 105/71
--- NOTE | 2019-01-05 14:06 | PATH ---
[facility] [address] [place] [address] PATHOLOGY RPT PROCEDURE Name: KEYLA LOPEZ Room: [facility] IN M.R.#: [id number] Admission: 12/29/18 Date of : 64 Discharge: Report #: [id number] Path Case #: [id number] [facility] Accession Number: [id number] . 01 Material submitted: . esophagus - BIOPSY ULCERATION OF ESOPHAGUS . 01 Clinical history: . None provided . 02 Diagnosis: Biopsy ulceration of esophagus: - Herpes esophagitis with ulceration, negative for granulomas and malignancy. (WINSTON:sherita; 01/05/2019) QMS 01/05/2019 1037 Local . 02 Electronically signed: . Eben Duncan MD, Pathologist NPI- [id number] . 01 Gross description: . The specimen is received in formalin, labeled "Kerivan, Keyla, biopsy ulceration of esophagus" and consists of 3 fragments of pink-mendez tissue measuring between 0.1 x 0.1 cm and 0.3 x 0.3 cm which are entirely submitted in A1. (SDY; 01/04/2019) SYU/SYU 01/04/2019 1635 Local . 02 Pathologist provided ICD-10: K20.8 . 02 CPT . [id number] Specimen Comment: A courtesy copy of this report has been sent to [phone] Specimen Comment: [phone], Specimen Comment: Report sent to ,DR BECERRA / DR DELACRUZ Specimen Comment: A duplicate report has been generated due to demographic updates. Performed at: 01 [facility] [address], [place], [place] [id number] MD Jose Cortez MD Phone: [phone] Performed at: 02 [facility] [address], [place], [place] [id number] MD Eben Duncan MD Phone: [phone]
[2019-01-05 16:29] VITALS: BP 105/71
--- NOTE | 2019-01-05 19:12 | NUR ---
ASSUMED PT CARE AT 729, FULL ASSESMENT DONE CHARTED. PT A/O X2, VIRGENEY FORGETFUL TODAY. PT IS NOT ABLE TO VERBALIZE WHERE HE IS OR WHAT YEAR IT IT. PT STRUGGLING TO FEED HIMSELF. UP WITH ASSIST, DOES NOT USE CALL LIGHT APPROPRIATLY. ISOLATION MAINTAINED. REPORT GIVEN TO BRIDGET FRANCO
[2019-01-05 20:00] VITALS: BP 126/81
[2019-01-06] VITALS: BP 113/76
--- NOTE | 2019-01-06 04:53 | NUR ---
ASSUMED PT CARE OF 193. PT IS AWAKE AND ORIENTED TO SELF, PLACE, AND SITUATION- CAN BE CONFUSED AND FORGETFUL AT TIMES. VSS ON ROOM AIR. ASSESSMENT DONE AND CHARTED. HIGH FALL PRECAUTIONS IN PLACE. PT DID NOT SLEEP THIS SHIFT. PT IS CLOSELY MONITORED.CALL LIGHT WITHIN REACH.
[2019-01-06 05:43] LABS: CALCIUM 7.8 mg/dL (8.5-10.1); CREATININE 0.9 mg/dL (0.6-1.3); POTASSIUM 4.2 mmol/L (3.5-5.1)
[2019-01-06 08:00] VITALS: BP 137/99
--- NOTE | 2019-01-06 10:13 | NUR ---
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
--- NOTE | 2019-01-06 17:17 | NUR ---
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
[2019-01-06 17:21] VITALS: BP 141/93
[2019-01-06 20:00] VITALS: BP 126/89
[2019-01-07 04:00] VITALS: BP 131/87
[2019-01-07 09:10] VITALS: BP 118/84
--- NOTE | 2019-01-07 09:10 | NUR ---
ASSUMED CARE AFTER REPORT APPROX 0730. ORIENTED TO SELF, COMBATIVE, INCONTINENT OF BOWEL/BLADDER. INAPPROPRIATE LANGUAGE AND BEHAVIOR. ASSESSMENT COMPLETE, VS OBTAINED, WNL, O2 SAT 95% RA. MED/SURG STATUS. FREQUENT MONITORING FOR PATIENT WHO IS COMBATIVE.
--- NOTE | 2019-01-07 10:00 | NUR ---
PATIENT CONFUSED AND COMBATIVE. PATIENT HAS BEEN OOB WITHOUT ASSISTANCE, WITHOUT GOWN, USING FOUL LANGUAGE AND PUSHING/HITTING STAFF. SECURITY CALLED TWICE. THIRD INSTANCE OF COMBATIVENESS OCCURRED WHILE HAND LEATHER TRIMMER STILL ON UNIT. PATIENT CONTINUES WITH INAPPROPRIATE BEHAVIOR. PHYSICIAN PAGED FOR PRN ANXIETY MEDICATION.
--- NOTE | 2019-01-07 16:00 | NUR ---
OBTAINING PATIENT VS DEFERRED AT THIS TIME D/T RESTING.
--- NOTE | 2019-01-07 18:00 | NUR ---
PATIENT HAS BEEN COOPERATIVE AT TIMES, RESTLESS AND UNCOOPERATIVE AT OTHER TIMES THIS AFTERNOON. PATIENT ORIENTED TO SELF. PATIENT STATES "I JUST WANT TO GO OUT IN THE LIVING ROOM AND WATCH TV. THIS ROOM IS MESSED UP." PATIENT USING SEXUALLY EXPLICIT CONVERSATION. BOUNDARIES ESTABLISHED. PATIENT CONTINUES WITH INAPPROPRIATE BEHAVIOR. SITTER PROVIDED.
[2019-01-07 19:45] VITALS: BP 97/69
--- NOTE | 2019-01-07 19:45 | NUR ---
RECEIVED REPORT AND ASSUMED CARE OF PT, ASSESSMENT COMPLETED. PT COOPERATIVE. RESTING IN BED WATCHING TV, SIDE RAILS PADDED, CALL LIGHT IN REACH. PT FREQ ASKING FOR TURKEY DINNER. EXPLAINED HE COULDN'T HAVE MEAT RIGHT NOW R/T STOMACH ISSUES. REMAINS IN ISOLATION FOR POSS TB. WILL CONT TO MONITOR CLOSELY AND ASSIST NEEDED.
[2019-01-08] VITALS: BP 105/73
[2019-01-08 04:54] LABS: HEMATOCRIT 30.9 % (42.0-52.0); HEMOGLOBIN 10.5 gm/dL (14.0-18.0); MCH 34.2 pg (26.0-34.0); MCV 100.7 fL (80.0-100.0); MPV 6.4 fl. (7.2-11.1); RBC 3.07 mil/uL (4.50-6.00); WBC 4.5 thou/uL (4.0-11.0)
[2019-01-08 05:08] LABS: CREATININE 0.9 mg/dL (0.6-1.3); MAGNESIUM 1.4 mg/dL (1.8-2.4); POTASSIUM 3.3 mmol/L (3.5-5.1)
--- NOTE | 2019-01-08 06:25 | NUR ---
AWAKE MOST OF THE NIGHT. IV ATIVAN GIVEN X1. PT CALM AND COOPERATIVE. SITTING UP IN CHAIR. ASKING FOR FOOD MOST OF NIGHT, ATE PUDDING AND MIXED FRUIT. SPILLED COFFEE THOUGH. NO CHANGE IN ASSESSMENT. HS GOALS OF REST AND SAFETY ACHIEVED. HOURLY ROUNDING OBSERVED.
[2019-01-08 07:11] LABS: HIV-1/HIV-2 ANTIBODY Non Reactive (Non Reactive)
[2019-01-08 12:09] LABS: VOLUME 16 ml
[2019-01-08 12:10] LABS: CSF CLARITY CLEAR; CSF COLOR COLORLESS; CSF GLUCOSE 53 mg/dl (40-70); CSF RBC 300 /mm3; CSF WBC 4 /mm3 (0-10)
--- NOTE | 2019-01-08 13:04 | NUR ---
CALL PLACED TO SISTER, JAVIER, WHO IS DPOA FOR PT. SHE IS INQUIRING HOW TO BECOME PT'S FINANCIAL GUARDIAN, STATING PT ASKED HER ABOUT TAKING CARE OF HIS FINANCES. ADVISED HIS LEGAL DOCUMENTS FOR SELF-DETERMINATION CAN BE UPDATED LONG THE PATIENT IS ABLE TO MAKE HIS OWN DECISIONS. ADVISED IF PT NOT ABLE, D/T PROLONGED CONFUSION, SHE WILL NEED TO PETITION THE COURT TO BECOME HIS COURT APPOINTED LEGAL GUARDIAN. ALL QUESTIONS ANSWERED. STATES SHE WILL BE IN TO VISIT LATER TODAY AND THROUGH THE WEEKEND.
[2019-01-08 16:00] VITALS: BP 91/55
--- NOTE | 2019-01-08 18:38 | NUR ---
ASSUMED PT CARE AT APPROX 0700, PT A&O X4, PLEASANT AND COOPERATIVE, VSS, RA, REMAINS MED SURG STATUS, FULL ASSESSMENT CHARTED. PT COMPLETED LUMBAR PUNCTURE THIS AM WITH, TOLERATED WELL. SCD'S REPLACED PER PT REQUEST, HOURLY ROUNDING COMPLETED.
[2019-01-08 20:00] VITALS: BP 89/55
--- NOTE | 2019-01-08 20:00 | NUR ---
RECEIVED REPORT AND ASSUMED CARE OF PT, ASSESSMENT COMPLETED. PT APPROPRIATE, CALM AND COOPERATIVE. DENIES HEADACHE BUT C/O CHRONIC BACK PAIN. TO AND FROM BR WITH SBA AND STEADY GAIT. WILL CONT TO MONITOR AND ASSIST NEEDED.
[2019-01-09] VITALS: BP 96/61
[2019-01-09 05:40] LABS: MAGNESIUM 1.4 mg/dL (1.8-2.4)
[2019-01-09 05:41] LABS: POTASSIUM 4.7 mmol/L (3.5-5.1)
--- NOTE | 2019-01-09 06:51 | NUR ---
AWAKE MOST OF NIGHT. CONT TO BE COOPERATIVE AND ORIENTED X4. NO CHANGE IN ASSESSMENT. HS GOALS OF REST AND SAFETY ACHIEVED. HOURLY ROUNDING OBSERVED.
[2019-01-09 09:58] VITALS: BP 104/64
[2019-01-09 18:58] VITALS: BP 127/62
[2019-01-09 20:00] VITALS: BP 102/63
[2019-01-10 04:00] VITALS: BP 119/73
--- NOTE | 2019-01-10 04:57 | NUR ---
ASSUMED CARE OF PT AFTER REPORT AT 1930. PT A&OX4. VSS. PHYSICAL ASSESSMENT COMPLETED AND CHARTED. PT ON RA. PT ON MEDSURG STATUS. PT UPSTANDBY TO RESTROOM. PT COMPLAINED NECK & BACK PAIN- MEDS GIVEN PER APR. SPUTUM SPECIMEN SENT TO LAB. PT ABLE TO SLEEP WELL ON BED. CALL LIGHT WITHIN REACH.
[2019-01-10 07:00] VITALS: BP 109/63
--- NOTE | 2019-01-10 08:01 | NUR ---
VSS, ASSUMED CARE IN THE AM, ASSESSMENT PERFORMED AND CHARTED, FALL PRECAUTIONS IN PLACE AND CALL LIGHT IN REACH, PT IS A&O4 BUT CAN BE FORGETFUL, HE IS MED SURG STATUS, UP WITH STAND BY ASSIST, IS IN ISO FOR TB R/O, PT HAS CHRONIC PAIN BUT DENIES ANY PAIN AT THIS TIME, PT GOAL IS TO SIT UP IN CHAIR AND WALK IN ROOM,
[2019-01-10 16:00] VITALS: BP 112/73
[2019-01-10 20:00] VITALS: BP 109/72
[2019-01-11 04:00] VITALS: BP 112/73
[2019-01-11 05:10] LABS: APTT 26.1 Seconds (25.0-31.3); PROTIME 9.9 Seconds (9.20-11.50)
--- NOTE | 2019-01-11 06:28 | NUR ---
ASSUMED CARE OF PT AFTER REPORT AT 1930. PT A&OX4. VSS. PHYSICAL ASSESSMENT COMPLETED AND CHARTED. PT ON RA. PT ON MEDSURG STATUS. PT DENIES ANY PAIN OR DISCOMFORT. PT INSTRUCTED ON NPO POST MIDNIGHT FOR THORACENTESIS TODAY. COMMUNICATES UNDERSTANDING. PT ABLE TO SLEEP WELL ON BED. CALL LIGHT WITHIN REACH.
[2019-01-11 08:00] VITALS: BP 124/78
[2019-01-11 11:54] LABS: BF RBC <1000 /mm3; TOTAL CELL COUNT 116 /mm3
[2019-01-11 12:02] LABS: CLARITY CLEAR
[2019-01-11 12:13] LABS: TOTAL VOLUME 660 ml
[2019-01-11 12:21] LABS: SOURCE PLEURAL FLUID
--- NOTE | 2019-01-11 13:00 | NUR ---
SPOKE TO COMPANY RE ANKLE BRACELET FOR DETECTION OF ALCOHOL ON PT'S RIGHT ANKLE CAUSING REDNESS WHICH WILL EVENTUALLY CAUSE A PRESSURE ULCER. ASKED FOR MONITOR TO BE ADJUSTED. COMPANY REP CAME AND ANKLE BRACELET REMOVED
--- NOTE | 2019-01-11 13:51 | NUR ---
Continue to await lab results.
[2019-01-11 16:00] VITALS: BP 126/79
--- NOTE | 2019-01-11 17:03 | NUR ---
PT REPORTS SOA AND SUDDEN RIGHT SIDED CHEST PAIN. STACH ON MONITOR. EKG SHOWS STACH NO ST ELEVATION. DR MCMANUS PAGED FOR FURTHER ORDERS
[2019-01-11 17:29] LABS: URINE BILIRUBIN NEGATIVE (Negative); URINE BLOOD NEGATIVE (Negative); URINE CLARITY CLEAR; URINE COLOR YELLOW; URINE GLUCOSE-RANDOM NEGATIVE (Negative); URINE KETONES NEGATIVE (Negative); URINE LEUKOCYTES NEGATIVE (Negative); URINE NITRITE NEGATIVE (Negative); URINE PROTEIN NEGATIVE (Negative); URINE SPECIFIC GRAVITY 1.015 (1.005-1.030); URINE UROBILINOGEN 0.2 E.U./dl (0.2-1.0)
[2019-01-11 17:30] VITALS: BP 109/65
[2019-01-11 20:00] VITALS: BP 101/56
--- NOTE | 2019-01-11 20:00 | NUR ---
RECEIVED REPORT AND ASSUMED CARE OF PT, ASSESSMENT COMPLETED. PT LETHARGIC BUT AWAKENS EASILY, PLEASANT AND COOPERATIVE. HOB ELEVATED, NO SOA OR DIFFICULTY WITH BREATHING, O2 ON AT 1L/NC. JENY LOWER LEGS WITH 2+ EDEMA. NO COMPLAINTS VOICED AT THIS TIME. WILL ASSIST NEEDED.
[2019-01-11 23:07] LABS: HSV 1 DNA Negative (Negative); HSV 2 DNA Negative (Negative)
[2019-01-11 23:40] VITALS: BP 93/57
[2019-01-12 05:40] LABS: ABSOLUTE EOSINOPHILS 0.1 thou/uL (0.0-0.7); ABSOLUTE LYMPHOCYTES 0.7 thou/uL (0.8-5.3); ABSOLUTE MONOCYTES 0.3 thou/uL (0.0-1.2); BASOPHILS 0.7 %; EOSINOPHILS 2.2 %; HEMATOCRIT 23.2 % (42.0-52.0); LYMPHOCYTES 24.4 %; MCH 35.1 pg (26.0-34.0); MCHC 34.4 g/dL (28.0-37.0); MCV 102.1 fL (80.0-100.0); MONOCYTES 8.3 %; MPV 6.5 fl. (7.2-11.1); NUCLEATED RBCS 0 /100WBC; PLATELET COUNT* 151 thou/uL (150-400); POLYS 64.4 %; RBC 2.27 mil/uL (4.50-6.00); RDW-CV 13.1 % (10.5-14.5)
[2019-01-12 05:58] LABS: ALBUMIN 1.9 g/dL (3.4-5.0); CALCIUM 8.2 mg/dL (8.5-10.1); CREATININE 0.9 mg/dL (0.6-1.3); MAGNESIUM 1.4 mg/dL (1.8-2.4); PHOSPHORUS* 2.6 mg/dL (2.5-4.9); TOTAL BILIRUBIN 0.5 mg/dL (<0.1-1.0); TOTAL PROTEIN 4.8 g/dL (6.4-8.2)
--- NOTE | 2019-01-12 06:57 | NUR ---
AWAKE OFF AND ON DURING THE NIGHT. THIS AM STATES HE HAD A NOSE BLEED. OXYGEN REMOVED. NO DIFFICULTY WITH BREATHING. ASSESSMENT UNCHANGED. HS GOALS OF REST AND SAFETY ACHIEVED. HOURLY ROUNDING OBSERVED.
--- NOTE | 2019-01-12 07:10 | NUR ---
CHANGE OF SHIFT, BEDSIDE REPORT GIVEN PATIENT SEEN AT BEDSIDE, IN BED RESTING ASSUMED PATIENT CARE
[2019-01-12 08:00] VITALS: BP 112/77
[2019-01-12 09:50] LABS: BF LYMPHOCYTES 8 %; BF MONOCYTES 53 %; BF POLYS 39 %; BF TISSUE 2 /100 WBC
--- NOTE | 2019-01-12 11:01 | EKG ---
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: KASSANDRA : 1960 Requested By: Liam Berman Order Number: [id number] José MD: Malcolm Guevara Measurements Intervals Cornelius Rate: 112 P: 82 UT: 144 QRS: 61 QRSD: 77 T: 95 QT: 352 QTc: 481 Interpretive Statements Sinus tachycardia Nonspecific T abnormalities, lateral leads Compared to ECG 12/29/2018 11:41:43 Atrial premature complex(es) no longer present Myocardial infarct finding no longer present Possible ischemia no longer present T-wave abnormality still present Electronically Signed On 01-12-2019 11:01:10 RETAIL CUSTOMER SERVICE REPRESENTATIVE by Malcolm Guevara [email or web address] <ELECTRONICALLY SIGNED> By: Malcolm Guevara MD, FACC 01/12/19 1101 1700 1700 Malcolm Guevara MD, FAC /EPI
[2019-01-12 11:02] LABS: % SATURATION 19 % (20-39); IRON 26 ug/dL (50-175)
--- NOTE | 2019-01-12 11:12 | NUR ---
Continue to await sputum results
[2019-01-12 16:16] VITALS: BP 127/82
[2019-01-12 20:00] VITALS: BP 108/66
[2019-01-13] VITALS: BP 98/61
--- NOTE | 2019-01-13 07:15 | NUR ---
CHANGE OF SHIFT, BEDSIDE REPORT GIVEN PATIENT SEEN AT BEDSIDE, IN BED RESTING ASSUMED PATIENT CARE
[2019-01-13 08:00] VITALS: BP 123/84
--- NOTE | 2019-01-13 08:02 | NUR ---
RECEIVED REPORT AND ASSUMED CARE AT 1900. VSS. PT REPORTS PAIN. PRN MEDICATION PER ORDERS. ASSESSMENT COMPLETED CHARTED. PT UP AD LUCIANO IN ROOM, ON RA. BED LOCKED IN LOWEST POSITION, CALL LIGHT WITHIN REACH. NO ACUTE CHANGES THROUGH THE NIGHT. HOURLY ROUNDING COMPLETED AND ALL NEEDS MET.
[2019-01-13 16:30] VITALS: BP 99/64
--- NOTE | 2019-01-13 17:00 | NUR ---
lab contact afb smear test negative dr zamora notified and patient isolation cancelled
[2019-01-13 20:00] VITALS: BP 100/62
[2019-01-14] VITALS: BP 99/56
--- NOTE | 2019-01-14 07:51 | NUR ---
ASSUMED PATIENT CARE AT 1900. ASSESSMENT COMPLETED CHARTED. PATIENT IS MED-SURG. HOURLY ROUNDING IN PLACE FOR PATIENT SAFETY. CLWR.
[2019-01-14 08:00] VITALS: BP 111/67
--- NOTE | 2019-01-14 09:49 | NUR ---
Pt off iso. Spoke with , rehab consult to be placed, along with new therapy orders. Updated certified rehabilitation counselor.
[2019-01-14 12:07] VITALS: BP 117/74
--- NOTE | 2019-01-14 13:07 | PATH ---
[address] [address] PATHOLOGY RPT PROCEDURE Name: KEYLA LOPEZ Room: [facility] IN [facility]#: [id number] Admission: 12/29/18 Date of : 64 Discharge: Report #: [id number] Path Case #: [id number] Note [facility] Accession Number: [id number] TESTS RESULT FLAG UNITS REF RANGE LAB Clinician Provided Cytology Information No. of containers..01 Other (Miscellaneous) Source: PLEURAL FLUID DIAGNOSIS: 02 PLEURAL FLUID NEGATIVE FOR MALIGNANT CELLS. SCANT CELLULARITY. FEW MESOTHELIAL CELLS AND INFLAMMATORY CELLS. THIS INTERPRETATION INCLUDES EVALUATION OF A CELL BLOCK. Signed out by: 02 Eben Duncan MD, Pathologist NPI- [id number] Performed by: 01 Romulo Frost, Slack Cooper ([facility]) Gross description: 01 45ML, LIGHT YELLOW, CLOUDY /LCS 02/10/1840 0000 Local FLAG LEGEND: L-Low Normal,H-High Normal,LL-Alert Low,HH-Alert High <-Panic Low,>-Panic High,A-Abnormal,AA-Critical Abnormal Performed at: [address] [place] [address] Jose Cortez MD, [address] [place] [address] [address] [facility], [place] [address] Eben Duncan MD, Specimen Comment: [id number] Specimen Comment: A duplicate report has been generated due to demographic updates. Performed at: [address], [place], [place] [id number] MD Jose Cortez MD Phone: [phone]
[2019-01-14 14:09] LABS: BODY FLUID LDH 48 IU/L (()); BODY FLUID PROTEIN 1.3 g/dL (())
[2019-01-14 15:47] LABS: SOURCE THORACENTESIS
[2019-01-14 15:53] VITALS: BP 118/72
--- NOTE | 2019-01-14 17:10 | NUR ---
PATIENT REC'D FROM TELE TO RM 108 PER BED W/ ULTRASOUND COORDINATOR PRESENT. REPORT REC'D. PATIENT ALERT AND ORIENTEDX4, STATES CONSTANT PAIN IN NECK AND BACK D/T VASU PLACEMENT FROM SCOLOSIS YEARS AGO. PATIENT STATES PAIN CONSTANTLY 7-8/10. INDEP IN RM W/ STEADY GAIT. CURRENTLY SITTING UP IN CHAIR. TV ON. CALL LIGHT IN REACH. DENIES NRSG NEEDS AT THIS TIME. ~MOUSTAPHA
--- NOTE | 2019-01-14 18:14 | NUR ---
PT VSS, A&OX4, MED SURG STATUS, SEVERE BLE EDEMA +3, ROOM AIR WITH SOA ON EXERTION. UP AD LUCIANO, HOURLY ROUNDING PERFORMED. POSSESSIONS AND CALL LIGHT WITHIN REACH. PT TRANSFERED TO ROOM 108, REPORT GIVEN TO JOAN LEE AROUND 1630
[2019-01-14 21:10] VITALS: BP 117/75
[2019-01-15 05:46] LABS: HEMATOCRIT 23.7 % (42.0-52.0); MCH 34.9 pg (26.0-34.0); MCV 102.7 fL (80.0-100.0); MPV 6.8 fl. (7.2-11.1); RBC 2.31 mil/uL (4.50-6.00); RDW-CV 13.3 % (10.5-14.5); WBC 3.1 thou/uL (4.0-11.0)
[2019-01-15 06:01] LABS: CALCIUM 8.5 mg/dL (8.5-10.1); CREATININE 0.8 mg/dL (0.6-1.3); MAGNESIUM 1.3 mg/dL (1.8-2.4); POTASSIUM 4.6 mmol/L (3.5-5.1)
[2019-01-15 07:30] VITALS: BP 128/77
--- NOTE | 2019-01-15 07:31 | NUR ---
ASSUMED CARE OF PT 01/14/19 AT APPROX 1930, PT A&OX4 THORUGHOUT SHIFT, VSS, PT ON ROOM AIR, PICC LINE DRESSING CHANGED, AM MAGNESIUM 1.3 - INITIATED PROTOCOL, ASSESSMENTS AND HOURLY ROUNDINGS COMPLETED, REPORT GIVEN AND PT CARE TRANSFERED TO DAY SHIFT NURSE APPROX 0772.
--- NOTE | 2019-01-15 13:36 | EEG ---
[address] [address] EEG STUDY REPORT Name: KEYLA LOPEZ Room: [address] IN M.R.#: [id number] Admission: 12/29/18 Attend Phys: Ramon Wright Discharge: Date of : 64 Report #: [id number] THIS REPORT FOR: //name// CC: Shai Villarreal DATE OF SERVICE: 01/06/2019 The patient is being evaluated for altered mental status. EEG is being done by placing the electrode by standard 10-20 system of electrode placement. Both referential and sequential montages were used for recording. Background activity in this patient's EEG is about 7 Hz and 30 microvolt. It is a poorly formed background activity. It is intermixed with even slower activity. Photic stimulation is unremarkable. The patient appeared to be drowsy during part of the EEG and that is associated with bilateral slowing and vertex sharp waves. Photic stimulation was unremarkable. IMPRESSION: This patient's EEG is disorganized and poorly formed. That is a nonspecific abnormality, which can occur with encephalopathy, effect of psychotropic medication, dementia, etc. Clinical correlation is recommended. <ELECTRONICALLY SIGNED> By: Kenny George MD 01/15/19 1336 1015 1022Pemma George MD /nt
--- NOTE | 2019-01-15 13:36 | CON ---
[address] [address] CONSULTATION Name: JOHNKEYLA Tiffanie Room: [address] IN .R.#: [id number] Admission: 12/29/18 Attend Phys: Ramon Wright Discharge: Date of : 64 Report #: [id number] THIS REPORT FOR: //name// CC: Shai Villarreal DATE OF SERVICE: 01/07/2019 HISTORY OF PRESENT ILLNESS: This is a 58-year-old male patient who was evaluated by me for any neurological etiology for the patient's altered mental status. This patient is very difficult to evaluate. He constantly uses foul language and refused to cooperate. When he cooperates, he is partly oriented, but he will not cooperate most of the time. I discussed the patient with ID. This patient has been agitated and he was given some steroids, but that was subsequently discontinued. He has seen multiple consultants during this admission. He was admitted with shortness of breath. He apparently has a history of weight loss and was not eating well. He has a history of smoking and drinking alcohol, but he has some monitor for alcohol intake now. REVIEW OF SYSTEMS: Limited as the patient did not cooperate. He has a history of scoliosis some alcohol-related seizures, macular degeneration, portal hypertension, back problems, etc. He will not provide any history and this is from the records. PAST MEDICAL HISTORY: Positive for smoking and drinking. FAMILY HISTORY: Unremarkable. SOCIAL HISTORY: He has a history of smoking and drinking alcohol. PHYSICAL EXAMINATION: The patient's exam was very difficult. On multiple attempts, he refused to cooperate. Once he did tell me it is December then he will get irrelevant answers. I tried to do the cranial nerve examination, he did not cooperate. Initially, he will not move his legs, but subsequently he did. He refused to cooperate, but he did not move his leg ultimately, he did not cooperate. He is moderately built individual. His cardiac examinations appear unremarkable. No respiratory difficulty, I noticed. Blood pressure is 118/84, respiration is 18, pulse is 93, temperature is 98.2. LABORATORY DATA: Indicate he is anemic with a hemoglobin of 8.9. His TSH and vitamin B12 are normal. He did have a CT scan of the head, which did not show any abnormality. IMPRESSION: At one time this patient had a significant hyponatremia. He also has a history of alcohol intake, but has a monitor now. This appeared to be encephalopathy. Whether he is withdrawing from something, I [place] [address] CONSULTATION Name: KEYLA LOPEZ Room: [address] IN [facility]#: [id number] Admission: 12/29/18 Attend Phys: Ramon Wright Discharge: Date of : 64 Report #: [id number] unlikely to be [employer] infection, but cannot be excluded. Steroid affect can cause this, but usually it is not so severe. RECOMMENDATION: I discussed with ID and I think it is reasonable to proceed with LP if he allows that, which is a big question. There is no way we can do any MRI on him here and except for that I have limited thing to add. Thank you very much for this referral. <ELECTRONICALLY SIGNED> By: Kenny George MD 01/15/19 1336 1113 [id number] George MD /nt
[2019-01-15 16:30] VITALS: BP 131/72
[2019-01-15 20:16] VITALS: BP 112/75
--- NOTE | 2019-01-16 04:55 | NUR ---
ASSUMED CARE OF PT 01/15/19 AT APPROX 1930, PT A&OX4 THROUGHOUT SHIFT, VSS, BLE EDEMA NOTED, MAGNESIUM LEVEL REMAINS AT 1.3 WITH 01/15/19 1920 LAB DRAW - 2ND ROUND OF MAGNESIUM PROTOCOL INITIATED, WILL CONTINUE TO MONITOR.
[2019-01-16 07:30] VITALS: BP 131/82
--- NOTE | 2019-01-16 16:54 | NUR ---
PT REMAINED ALERT AND ORIENTED. PT UP WALKING IN ROOM. PAIN MEDS AND ANXIETY MEDS GIVEN ORDERED. FALL RISK PRECAUTIONS IN PLACE. HOURLY ROUNDING COMPLETED. WILL CONTINUE TO MONITOR.
[2019-01-16 20:10] VITALS: BP 106/69
--- NOTE | 2019-01-17 03:11 | NUR ---
PATIENT HAS REMAINED ALERT AND ORIENTED X 4 THROUGHOUT THE SHIFT. UP WITH SBA TO BR FOR VOIDS. MAGNESIUM REPLACED. REDRAW PENDING. MEDICATED FOR PAIN X 1 OF THIS WRITING WELL SCHEDULED FLEXERIL. VITAL SIGNS STABLE. FLAT AFFECT. STATES HE IS GOING TO REHAB FRIDAY. (REHAB CONSULT/EVAL STATES SNF REC IF UNABLE TO SAFELY GO HOME) CONTINUE TO MONITOR.
--- NOTE | 2019-01-17 06:16 | NUR ---
PATIENT RECHECK MAGNESIUM 2.7. NO NEW EVENTS OR CHANGES FROM PREVIOUS END OF SHIFT ENTRY.
[2019-01-17 07:20] VITALS: BP 112/70
[2019-01-17 16:00] VITALS: BP 117/75
--- NOTE | 2019-01-17 17:05 | NUR ---
pt remained alert and oriented. pain meds given as ordered. pt up walking in room. fall risk precautions in place. hourly rounding completed. will continue to monitor.
[2019-01-17 20:00] VITALS: BP 107/66
--- NOTE | 2019-01-18 03:36 | NUR ---
PATIENT HAS REMAINED ALERT AND ORIENTED X 4 THROUGHOUT THE SHIFT AND RESTING QUIETLY ON HOURLY ROUNDS. UP INDEPENDENTLY IN ROOM. NO COUGH NOTED. ROOM AIR. MEDS/ANTIBIOTICS PER ORDER. REQUESTING PAIN MEDICATION Q4-6 HOURS TO TOLERABLE PAIN MANAGEMENT FOR CHRONIC NECK AND BACK PAIN. VITAL SIGNS STABLE/AFEBRILE. CONTINUE TO MONITOR.
[2019-01-18 06:11] LABS: ABSOLUTE EOSINOPHILS 0.1 thou/uL (0.0-0.7); ABSOLUTE LYMPHOCYTES 0.6 thou/uL (0.8-5.3); ABSOLUTE MONOCYTES 0.3 thou/uL (0.0-1.2); ABSOLUTE NEUTROPHILS 1.6 thou/uL (1.6-8.1); EOSINOPHILS 5.2 %; HEMATOCRIT 21.1 % (42.0-52.0); HEMOGLOBIN 7.3 gm/dL (14.0-18.0); LYMPHOCYTES 23.6 %; MCH 35.5 pg (26.0-34.0); MCHC 34.4 g/dL (28.0-37.0); MCV 103.1 fL (80.0-100.0); MPV 6.7 fl. (7.2-11.1); NUCLEATED RBCS 0 /100WBC; PLATELET COUNT* 190 thou/uL (150-400); POLYS 60.2 %; RBC 2.05 mil/uL (4.50-6.00); RDW-CV 13.8 % (10.5-14.5); WBC 2.6 thou/uL (4.0-11.0)
[2019-01-18 06:26] LABS: CALCIUM 8.1 mg/dL (8.5-10.1); CREATININE 0.7 mg/dL (0.6-1.3); POTASSIUM 4.1 mmol/L (3.5-5.1)
[2019-01-18 09:15] VITALS: BP 112/73
--- NOTE | 2019-01-18 16:00 | NUR ---
SPOKE WITH PT. HE WAS ALERT AND ORIENTED. EXPLAINED TO HIM THAT SINCE HE WAS WALKING AROUND IN ROOM BY HIMSELF,ETC, ,REHAB DRBillyFELT HE WAS DOING TOO WELL TO GO TO INPT.REHAB UNIT. HE SAID HE WAS PLANNING TO GO HOME. HEM/ONC CONSULTED TODAY FOR LOW WBC. HAS NOT SEEN YET. PT.AWARE OF CONSULT. PT.'S MOTHER CAMD TO NURSES STATION LATER AND SAID PT.IS TO BE IN COURT ON FRI. GAVE PHONE NUMBER OF COURT AND ASKED THAT WE NOTIFY THEM HE IS IN THE HOSPITAL. CM WILL WAIT TO SEE WHEN DISCHARGE DATE IS AND NOTIFY THE COURT IF PT.STILL HOSPTIALIZED.
[2019-01-18 18:50] LABS: ABSOLUTE EOSINOPHILS 0.1 thou/uL (0.0-0.7); ABSOLUTE LYMPHOCYTES 0.7 thou/uL (0.8-5.3); ABSOLUTE MONOCYTES 0.3 thou/uL (0.0-1.2); ABSOLUTE NEUTROPHILS 1.7 thou/uL (1.6-8.1); BASOPHILS 0.9 %; EOSINOPHILS 4.4 %; HEMATOCRIT 21.2 % (42.0-52.0); HEMOGLOBIN 7.2 gm/dL (14.0-18.0); LYMPHOCYTES 24.5 %; MCH 35.3 pg (26.0-34.0); MCHC 34.1 g/dL (28.0-37.0); MCV 103.6 fL (80.0-100.0); MONOCYTES 10.7 %; MPV 6.2 fl. (7.2-11.1); NUCLEATED RBCS 0 /100WBC; PLATELET COUNT* 207 thou/uL (150-400); POLYS 59.5 %; RBC 2.04 mil/uL (4.50-6.00); RDW-CV 13.7 % (10.5-14.5); WBC 2.9 thou/uL (4.0-11.0)
--- NOTE | 2019-01-18 19:00 | NUR ---
PATIENT PLEASANT AND COOPERATIVE W/ ASSESS AND CARES. COOPERATIVE W/ THERAPIES. CONTINTUES TO RATE CHRONIC NECK AND BACK PAIN CONSISTENT 7+ THRU SHIFT, SEE MAR. HRLY ROUNDS DONE. EATING WELL. ~TJRN
[2019-01-18 19:40] VITALS: BP 110/62
[2019-01-19] VITALS: BP 147/75
--- NOTE | 2019-01-19 01:34 | NUR ---
PATIENT CALLED TO HAVE RN COME TO ROOM. PATIENT STATES HE GOT UP TO GO TO THE BATHROOM AND HIS LEGS FELT NUMB AND THAT THEY WERE GOING TO POP. ONGOING 2+ LE EDEMA PRESENT AND TO THIS NURSES VISUAL ASSESSMENT UNCHANGED FROM THE LAST THREE NIGHTSHIFT ASSSESSMENTS. FEET ARE WARM WITH 2+ PEDAL PULSES PRESENT AND BRISK CAP REFILL. SKIN FROM FEET TO UPPER CALVES SHINEY AND PINK. -AMANDA'S SIGN. PATIENT ABLE TO FEEL THE COOLNESS OF THIS NURSES HANDS WITH TACTILE ASSESSMENT. PATIENT ALSO REPORTS THE FEELING OF SWELLING EXTENDS TO HIS THIGHS. NO INCREASE IN SHORTNESS OF AIR. O2 SATS ON ROOM AIR 100%. HRR AT 100 BPM. BP 147/75. PATIENT ENCOURAGED TO LOWER HEAD OF BED TO KEEP LE'S ELEVATED ABOVE HEART. PILLOW/WEDGE PROVIDED. REACHED ON-CALL PHYSICIAN DR. LOZA VIA [facility] [phone] WITH ABOVE FINDINGS GIVEN. NEW ORDERS RECEIVED. PATIENT UPDATED ON PLAN OF CARE. CONTINUE TO MONITOR.
[2019-01-19 01:52] LABS: ABSOLUTE EOSINOPHILS 0.1 thou/uL (0.0-0.7); ABSOLUTE LYMPHOCYTES 0.7 thou/uL (0.8-5.3); ABSOLUTE MONOCYTES 0.3 thou/uL (0.0-1.2); ABSOLUTE NEUTROPHILS 1.6 thou/uL (1.6-8.1); LYMPHOCYTES 25.3 %; MCH 35.7 pg (26.0-34.0); MCHC 34.6 g/dL (28.0-37.0); MCV 103.2 fL (80.0-100.0); MONOCYTES 9.6 %; MPV 6.6 fl. (7.2-11.1); NUCLEATED RBCS 0 /100WBC; PLATELET COUNT* 194 thou/uL (150-400); POLYS 59.1 %; RBC 1.89 mil/uL (4.50-6.00); RDW-CV 13.7 % (10.5-14.5); WBC 2.7 thou/uL (4.0-11.0)
[2019-01-19 01:53] LABS: HEMATOCRIT 19.5 % (42.0-52.0); HEMOGLOBIN 6.8 gm/dL (14.0-18.0)
[2019-01-19 01:59] LABS: CALCIUM 8.4 mg/dL (8.5-10.1); CREATININE 0.7 mg/dL (0.6-1.3); POTASSIUM 3.8 mmol/L (3.5-5.1)
--- NOTE | 2019-01-19 04:26 | NUR ---
PATIENT HAS REMAINED ALERT AND ORIENTED X 4 THROUGHOUT THE SHIFT. CAN BE A LITTLE BIT FORGETFUL. COMPLAINTS REARDING LE EDEMA SOMEWHAT IMPROVED BUT NOT RESOLVED. CRITICAL HH RESULTS COMMUNICATED TO DR. LOZA. WILL ADDRESS TODAY. HEMATOLOGY CONSULT TODAY. MEDS FOR CHRONIC PAIN PROVIDED AT PATIENT REQUEST. LE'S REMAIN ELEVATED. PATIENT ENCOURAGED TO CALL FOR ASSIST TO BR. CONTINUE TO MONITOR.
[2019-01-19 07:25] VITALS: BP 117/78
[2019-01-19 11:36] VITALS: BP 112/72; BP 118/73; BP 122/79; BP 123/79
--- NOTE | 2019-01-19 17:37 | NUR ---
PT REMAINED ALERT AND ORIENTED. PT RESTING IN ROOM. PAIN MEDS GIVEN ORDERED. UNIT OF BLODD TRANSFUSED WITHOUT COMPLICATIONS. FALL RISK PRECAUTIONS IN PLACE. HOURLY ROUNDING COMPLETED. WILL CONTINUE TO MONITOR.
[2019-01-19 19:04] LABS: HEMATOCRIT 24.4 % (42.0-52.0); HEMOGLOBIN 8.3 gm/dL (14.0-18.0); MCH 34.2 pg (26.0-34.0); MCHC 33.9 g/dL (28.0-37.0); MCV 100.9 fL (80.0-100.0); MPV 6.7 fl. (7.2-11.1); RBC 2.42 mil/uL (4.50-6.00); WBC 2.7 thou/uL (4.0-11.0)
[2019-01-19 20:36] VITALS: BP 105/65
--- NOTE | 2019-01-20 05:15 | NUR ---
REQUESTED NO PAIN MEDICATION. NO REPORTS OF WORSENING OF CONDITION. HAS BEEN NPO FOR AM EGD. SIGNED CONSENT IN CHART. HE WAS ABLE TO SLEEP MOST OF THE SHIFT. SWELLING IN BOTH LOWER EXTREMETIES STILL SIGNIFICANT. HE TOOK A SHOWER LAST NIGHT, AMBULATING WELL. WILL CONTINUE TO FOLLOW PLAN OF CARE.
[2019-01-20 05:44] LABS: ABSOLUTE EOSINOPHILS 0.1 thou/uL (0.0-0.7); ABSOLUTE LYMPHOCYTES 0.8 thou/uL (0.8-5.3); ABSOLUTE MONOCYTES 0.3 thou/uL (0.0-1.2); ABSOLUTE NEUTROPHILS 1.4 thou/uL (1.6-8.1); BASOPHILS 1.2 %; EOSINOPHILS 4.6 %; HEMATOCRIT 23.6 % (42.0-52.0); LYMPHOCYTES 30.2 %; MCH 33.9 pg (26.0-34.0); MCHC 33.7 g/dL (28.0-37.0); MCV 100.8 fL (80.0-100.0); MONOCYTES 10.5 %; MPV 6.2 fl. (7.2-11.1); NUCLEATED RBCS 0 /100WBC; PLATELET COUNT* 220 thou/uL (150-400); POLYS 53.5 %; RBC 2.34 mil/uL (4.50-6.00); RDW-CV 16.4 % (10.5-14.5); WBC 2.7 thou/uL (4.0-11.0)
[2019-01-20 05:53] LABS: CALCIUM 8.5 mg/dL (8.5-10.1); CREATININE 0.7 mg/dL (0.6-1.3); POTASSIUM 4.1 mmol/L (3.5-5.1)
[2019-01-20 07:20] VITALS: BP 124/78
[2019-01-20 09:16] LABS: DIRECT BILIRUBIN 0.1 mg/dL (<0.1-0.3); TOTAL BILIRUBIN 0.3 mg/dL (<0.1-1.0)
[2019-01-20 09:48] VITALS: BP 124/78
[2019-01-20 15:54] VITALS: BP 128/65
--- NOTE | 2019-01-20 18:03 | NUR ---
PT REMAINED ALERT AND ORIENTED. PAIN MEDS GIVEN ORDERED. FALL RISK PRECAUTIONS IN PLACE. HOURLY ROUNDING COMPLETED. WILL CONTINUE TO MONITOR.
[2019-01-20 20:00] VITALS: BP 100/61
--- NOTE | 2019-01-21 03:45 | NUR ---
ASSESSMENT: PT REMAIN ALERT AND ORIENT TIMES FOUR. UP AD LUCIANO WITH STEADY GAIT. VSS, AFEBRILE. PRN PAIN MEDS GIVEN WITH GOOD RELIEF. RIGHT UPPER ARM PICC PATENT AND INTACT. TOLERATING PO INTAKE. SLOW PROGRESS TOWARDS DC GOALS, WILL CONTINUE TO MONITOR.
[2019-01-21 07:30] VITALS: BP 123/70
[2019-01-21 11:23] VITALS: BP 123/70
[2019-01-21 12:26] LABS: ABSOLUTE EOSINOPHILS 0.1 thou/uL (0.0-0.7); ABSOLUTE LYMPHOCYTES 0.6 thou/uL (0.8-5.3); ABSOLUTE MONOCYTES 0.2 thou/uL (0.0-1.2); ABSOLUTE NEUTROPHILS 1.6 thou/uL (1.6-8.1); BASOPHILS 0.7 %; EOSINOPHILS 3.1 %; HEMOGLOBIN 7.8 gm/dL (14.0-18.0); LYMPHOCYTES 23.7 %; MCH 34.6 pg (26.0-34.0); MCV 101.9 fL (80.0-100.0); MONOCYTES 9.3 %; MPV 6.8 fl. (7.2-11.1); NUCLEATED RBCS 0 /100WBC; PLATELET COUNT* 255 thou/uL (150-400); POLYS 63.2 %; RBC 2.26 mil/uL (4.50-6.00); RDW-CV 16.3 % (10.5-14.5); WBC 2.5 thou/uL (4.0-11.0)
[2019-01-21 12:35] LABS: CALCIUM 8.1 mg/dL (8.5-10.1); CREATININE 0.7 mg/dL (0.6-1.3); POTASSIUM 4.2 mmol/L (3.5-5.1)
--- NOTE | 2019-01-21 12:41 | NUR ---
PT.TO BE DISCHARGED TODAY. HE DENIES ANY NEEDS. PUT NUMBER FOR [employer] (MEDICAID TRANSPORTATION) ON PT.'S DISCHARGE INSTRUCTIONS TO CALL FOR RIDE TO MEDICAL APPTS.,IF NEEDED. CECY CHECKED WITH SECURITY [employer] TO MAKE SURE PT.DIDN'T HAVE ANY POLICE HOLDS AGAINST HIM. HE SAID TO HIS KNOWLEDGE HE DID NOT.
[2019-01-21] MEDS ORDERED: FOLIC ACID1 MG PO (14:05)
[2019-01-21] MEDS ORDERED: CYMBALTA20 MG PO (14:05)
[2019-01-21] MEDS ORDERED: VALACYCLOVIR500 MG PO (14:07)
[2019-01-21] MEDS ORDERED: AUGMENTIN 875-1 EACH PO (14:08)
[2019-01-21] MEDS ORDERED: SUPER THERAVIT1 EACH PO (14:09)
[2019-01-21] MEDS ORDERED: VITAMIN B-1100 M2 PO (14:10)
[2019-01-21] MEDS ORDERED: CARAFATE 1 GM TA1 GM PO (14:15)
--- NOTE | 2019-01-21 15:53 | NUR ---
ASSUMED CARE OF PATIENT AT APPROX 0730. ALERT AND ORIENTED X4. ASSESSMENT COMPLETED AND CHARTED. VSS ON ROOM AIR. PAIN MANAGED WITH PO TRAMADOL. PATIENT COMPLAINT OF ANXIETY ADDRESSED WITH ATIVAN. NO OTHER COMPLAINTS. PATIENT DISCHARGED AT 1530 WITH ALL PERSONAL BELONGINGS, PRESCRIPTIONS AND DISCHARGE INFORMATION.
--- NOTE | 2019-01-25 08:45 | CON ---
[address] [address] CONSULTATION Name: KEYLA LOPEZ Room: [address] IN M.R.#: [id number] Admission: 12/29/18 Attend Phys: Ramon Wright Discharge: 01/21/19 Date of : 64 Report #: [id number] THIS REPORT FOR: //name// CC: Shai Villarreal DATE OF SERVICE: 01/19/2019 REASON FOR CONSULTATION: Leukopenia and anemia. HISTORY OF PRESENT ILLNESS: This is a 58-year-old male who had prolonged hospitalization due to cavitary pneumonitis and HSV esophagitis, who has been treated with Augmentin and valacyclovir. The patient reported some fatigue. I reviewed his CBC, which showed new development of leukopenia since January 12, dropped from 4.5 to 2.7. However, his ANC remains adequate at the level of 1.6. In addition to that, the patient had chronic anemia. However, it is worsening in the last 3 days. Today, his hemoglobin is 6.8. Reviewing rest of his workup showed MCV is elevated. He had macrocytic changes. The patient has been drinking for at least 10 years. REVIEW OF SYSTEMS: All systems were reviewed. It was negative except the above. PAST MEDICAL HISTORY: Chronic anemia, alcoholism, esophageal ulcers, history of alcohol withdrawal with seizure, portal hypertensive gastropathy, and COPD. MEDICATIONS: List per admission list. ALLERGIES: PER RECORDS, HE IS ALLERGIC TO MORPHINE. SOCIAL HISTORY: He is a heavy drinker, also he is an ex-smoker. He has a 57-bufo-p-year history of smoking. No drug abuse. FAMILY HISTORY: No family history of malignancy or blood disorder. PHYSICAL EXAMINATION: VITAL SIGNS: Today, temperature is 36.7, pulse is 107, respirations 16, blood pressure is 117/78, and SpO2 was 98% on room air. GENERAL: The patient was sitting in chair, was not in acute distress. LUNGS: Decreased breathing sounds bilaterally, mild rhonchi. ABDOMEN: Soft and nontender. EXTREMITIES: No edema. NEUROLOGIC: The patient is awake, alert, and oriented. LABORATORY DATA: Today, WBC is 2.7, hemoglobin 6.8, MCV is 103, and platelets 194. PT is 9.9, PTT 26.1, creatinine is 0.7. Ferritin was 878, [place] [address] CONSULTATION Name: EUNKEYLA CAMEJO Tiffanie Room: [address]#: [id number] Admission: 12/29/18 Attend Phys: Ramon Wright Discharge: 01/21/19 Date of : 64 Report #: [id number], bilirubin is 0.5, LDH is 193. B12 is 781 and folate is 13.9. ASSESSMENT AND PLAN: 1. This 58-year-old male was evaluated because of macrocytic anemia, acute on chronic. His nutritional studies including iron, B12, folate came back negative. I do not believe that the patient is having myelodysplastic syndrome, however, his anemia could be explained by liver injury. In addition to that, he might have a superimposed gastrointestinal bleed in the last few days. Recommend to obtain occult blood in stool. Transfuse 1 unit today. In terms of possibility of hemolysis, his LDH and bilirubin are within normal range. Haptoglobin will be low because of liver disease. 2. Leukopenia, again it could be drug induced. His absolute neutrophil count has been adequate. The patient does not have any fever at this point. We will check copper level. <ELECTRONICALLY SIGNED> By: Neli Neville MD 01/25/19 0845 0958 [id number] Neville MD /nt
== END 2019-01-21 15:30 | disposition home or self-care (01) | DRG 177 ==
LOC: M.ERS 11:30 → M.2W 13:39 → M.ICU 13:39 → M.TBA-ER 13:39 → M.ICU 16:10 → M.2W 12-31 10:50 → M.ORTHSURG 01-14 17:10
PROVIDERS: Family Medicine; Internal Medicine; Internal Medicine Gastroenterology; Internal Medicine Hematology & Oncology; Specialist; ADMIT Internal Medicine
PROC: 02HV33Z Insertion of Infusion Device into Superior Vena Cava, Percutaneous Approach (ICD-10-PCS; 2018-12-30)
PROC: 0DB58ZX Excision of Esophagus, Via Natural or Artificial Opening Endoscopic, Diagnostic (ICD-10-PCS; principal; 2019-01-01)
PROC: 009U3ZX Drainage of Spinal Canal, Percutaneous Approach, Diagnostic (ICD-10-PCS; 2019-01-08)
PROC: B01B1ZZ Fluoroscopy of Spinal Cord using Low Osmolar Contrast (ICD-10-PCS; 2019-01-08)
PROC: 0W993ZZ Drainage of Right Pleural Cavity, Percutaneous Approach (ICD-10-PCS; 2019-01-11)
PROC: 30233N1 Transfusion of Nonautologous Red Blood Cells into Peripheral Vein, Percutaneous Approach (ICD-10-PCS; 2019-01-19)
PROC: 0DJ08ZZ Inspection of Upper Intestinal Tract, Via Natural or Artificial Opening Endoscopic (ICD-10-PCS; 2019-01-20)
DX: J85.1 Abscess of lung with pneumonia (principal); J96.21 Acute and chronic respiratory failure with hypoxia; E43 Unspecified severe protein-calorie malnutrition; G04.90 Encephalitis and encephalomyelitis, unspecified; G92 Toxic encephalopathy; K22.10 Ulcer of esophagus without bleeding; E87.1 Hypo-osmolality and hyponatremia; J44.1 Chronic obstructive pulmonary disease with (acute) exacerbation; K76.6 Portal hypertension; E87.2 Acidosis; B37.0 Candidal stomatitis; J91.8 Pleural effusion in other conditions classified elsewhere; J44.0 Chronic obstructive pulmonary disease with (acute) lower respiratory infection; D61.818 Other pancytopenia; K22.2 Esophageal obstruction; K59.00 Constipation, unspecified; M41.9 Scoliosis, unspecified; F17.200 Nicotine dependence, unspecified, uncomplicated; R91.8 Other nonspecific abnormal finding of lung field; E87.6 Hypokalemia; I48.91 Unspecified atrial fibrillation; E53.8 Deficiency of other specified B group vitamins; K76.9 Liver disease, unspecified; K21.9 Gastro-esophageal reflux disease without esophagitis; D72.810 Lymphocytopenia; I27.20 Pulmonary hypertension, unspecified; K44.9 Diaphragmatic hernia without obstruction or gangrene; R13.14 Dysphagia, pharyngoesophageal phase; E83.42 Hypomagnesemia; R07.89 Other chest pain; J98.4 Other disorders of lung; F10.20 Alcohol dependence, uncomplicated; Y90.9 Presence of alcohol in blood, level not specified; D50.9 Iron deficiency anemia, unspecified; D63.8 Anemia in other chronic diseases classified elsewhere; F03.90 Unspecified dementia, unspecified severity, without behavioral disturbance, psychotic disturbance, mood disturbance, and anxiety; F41.9 Anxiety disorder, unspecified; T38.0X5A Adverse effect of glucocorticoids and synthetic analogues, initial encounter; G62.9 Polyneuropathy, unspecified; D53.9 Nutritional anemia, unspecified; K57.10 Diverticulosis of small intestine without perforation or abscess without bleeding; K31.89 Other diseases of stomach and duodenum; Z68.20 Body mass index [BMI] 20.0-20.9, adult; Z23 Encounter for immunization; Z79.899 Other long term (current) drug therapy; Z90.89 Acquired absence of other organs; Z87.11 Personal history of peptic ulcer disease; Z81.1 Family history of alcohol abuse and dependence; Z83.3 Family history of diabetes mellitus; Z84.89 Family history of other specified conditions; Y92.89 Other specified places as the place of occurrence of the external cause

== ENCOUNTER 2019-11-15 00:33 | Inpatient (IN) | payer MEDICAID ==
[~2019-11-15] VITALS: Ht 180.3 cm; Wt 89.4 kg
[2019-11-15] VITALS (7 sets, daily range): BP systolic 111–150; BP diastolic 60–88
--- NOTE | ~2019-11-15 | PROC ---
[facility] [address] [place] [address] PROCEDURE REPORT Name: KEYLA LOPEZ Room: [address] ADM IN M.R.#: [id number] Admission: 11/15/19 Attend Phys: Ramon Wright Discharge: Date of : 64 Report #: [id number] THIS REPORT FOR: //name// cc: Shai Silver Bradley L. DO ~ THIS REPORT FOR: //name// For GI report, please see the Provation report in Per[employer] 7 content. By: [id number] Records Staff [facility] /LIZZETTE
--- NOTE | ~2019-11-15 | PROC ---
[facility] [address] [place] [address] PROCEDURE REPORT Name: KEYLA LOPEZ Room: [address] ADM IN M.R.#: [id number] Admission: 11/15/19 Attend Phys: Ramon Wright Discharge: Date of : 64 Report #: [id number] THIS REPORT FOR: //name// cc: Shai Silver Bradley L. DO ~ THIS REPORT FOR: //name// For GI report, please see the Provation report in Perceptive 7 content. By: [id number] Records Staff [facility] /LIZZETTE
[~2019-11-15 00:33] MED LIST changes: +AUGMENTIN 875-1 EACH PO; +CARAFATE 1 GM TA1 GM PO; +CYMBALTA20 MG PO; +FOLIC ACID1 MG PO; +SUPER THERAVIT1 EACH PO; +VALACYCLOVIR500 MG PO; +VITAMIN B-1100 M2 PO
[2019-11-15 00:57] LABS: ABSOLUTE LYMPHOCYTES 0.5 thou/uL (0.8-5.3); ABSOLUTE MONOCYTES 0.4 thou/uL (0.0-1.2); ABSOLUTE NEUTROPHILS 4.4 thou/uL (1.6-8.1); BASOPHILS 0.3 %; HEMATOCRIT 43.1 % (42.0-52.0); HEMOGLOBIN 15.1 gm/dL (14.0-18.0); LYMPHOCYTES 9.4 %; MCH 33.5 pg (26.0-34.0); MCHC 35.2 g/dL (28.0-37.0); MCV 95.2 fL (80.0-100.0); MONOCYTES 6.9 %; MPV 7.3 fl. (7.2-11.1); NUCLEATED RBCS 0 /100WBC; PLATELET COUNT* 177 thou/uL (150-400); POLYS 83.4 %; RBC 4.52 mil/uL (4.50-6.00); RDW-CV 13.4 % (10.5-14.5); WBC 5.3 thou/uL (4.0-11.0)
[2019-11-15 01:08] LABS: CALCIUM 10.8 mg/dL (8.5-10.1); CREATININE 1.5 mg/dL (0.6-1.3)
[2019-11-15 01:10] LABS: APTT 22.5 Seconds (25.0-31.3); PROTIME 10.4 Seconds (9.20-11.50)
[2019-11-15 01:11] LABS: POTASSIUM 2.8 mmol/L (3.5-5.1)
[2019-11-15 01:21] LABS: CK-MB MASS 2.2 ng/mL (<0.5-3.6); MAGNESIUM 1.5 mg/dL (1.8-2.4); TOTAL BILIRUBIN 1.2 mg/dL (<0.1-1.0); TOTAL PROTEIN 7.7 g/dL (6.4-8.2)
--- NOTE | 2019-11-15 09:41 | EKG ---
[place] [address] ELECTROCARDIOGRAM REPORT Name: KEYLA LOPEZ Room: [address] ADM IN .R.#: [id number] Admission: 11/15/19 Attend Phys: Foster Villarreal Discharge: Date of : 64 Date of Service: 11/15/19 0039 Report #: [id number] THIS REPORT FOR: //name// [facility] ED Test Date: 2019-11-15 Test Time: 00:39:54 Pat Name: KEYLA LOPEZ Department: Room: [facility] Gender: M Panama Hat Smearer: ADRIEN : 1960 Requested By: Cecilio Cherry Order Number: [id number] MD: Flaquito Isidro Measurements Intervals [place] Rate: 123 P: 73 LA: 133 QRS: 43 QRSD: 74 T: 45 QT: 328 QTc: 470 Interpretive Statements Sinus tachycardia poor r wave progression Atrial premature complex Baseline wander in lead(s) V1 Compared to ECG 01/11/2019 17:00:13 Atrial premature complex(es) now present Electronically Signed On 11-15-2019 9:41:14 CDT by Flaquito Isidro [email or web address] <ELECTRONICALLY SIGNED> By: Flaquito Isidro MD, FACC 11/15/19 0941 0039 0039 Flaquito Isidro MD, FACC /EPI
[2019-11-15 13:18] LABS: CALCIUM 8.2 mg/dL (8.5-10.1); CREATININE 1.2 mg/dL (0.6-1.3); MAGNESIUM 1.9 mg/dL (1.8-2.4); POTASSIUM 3.2 mmol/L (3.5-5.1)
[2019-11-16] VITALS (8 sets, daily range): BP systolic 109–132; BP diastolic 61–72
[2019-11-16 02:06] LABS: GLYCOHEMOGLOBIN (HGB A1C) 5.8 % (4.8-5.6)
[2019-11-16 04:50] LABS: HEMATOCRIT 30.4 % (42.0-52.0); MCH 33.8 pg (26.0-34.0); MCHC 35.1 g/dL (28.0-37.0); MCV 96.3 fL (80.0-100.0); MPV 7.5 fl. (7.2-11.1); RBC 3.16 mil/uL (4.50-6.00); RDW-CV 13.1 % (10.5-14.5); WBC 5.1 thou/uL (4.0-11.0)
[2019-11-16 04:58] LABS: HEMOGLOBIN 10.7 gm/dL (14.0-18.0)
[2019-11-16 05:09] LABS: ALBUMIN 2.7 g/dL (3.4-5.0); CALCIUM 8.1 mg/dL (8.5-10.1); CREATININE 1.2 mg/dL (0.6-1.3); MAGNESIUM 1.9 mg/dL (1.8-2.4); PHOSPHORUS* 1.9 mg/dL (2.5-4.9); POTASSIUM 3.4 mmol/L (3.5-5.1); TOTAL PROTEIN 5.2 g/dL (6.4-8.2)
[2019-11-16 06:58] LABS: URINE BILIRUBIN NEGATIVE (Negative); URINE BLOOD NEGATIVE (Negative); URINE CLARITY CLEAR; URINE COLOR YELLOW; URINE GLUCOSE-RANDOM NEGATIVE (Negative); URINE KETONES TRACE (Negative); URINE LEUKOCYTES-REFLEX NEGATIVE (Negative); URINE NITRITE-REFLEX NEGATIVE (Negative); URINE PROTEIN NEGATIVE (Negative); URINE SPECIFIC GRAVITY 1.015 (1.005-1.030); URINE UROBILINOGEN 0.2 E.U./dl (0.2-1.0)
[2019-11-16 09:00] LABS: ABSOLUTE LYMPHOCYTES 0.8 thou/uL (0.8-5.3); ABSOLUTE MONOCYTES 0.3 thou/uL (0.0-1.2); ABSOLUTE NEUTROPHILS 4.5 thou/uL (1.6-8.1); BASOPHILS 0.1 %; EOSINOPHILS 0.3 %; HEMATOCRIT 30.5 % (42.0-52.0); HEMOGLOBIN 10.8 gm/dL (14.0-18.0); LYMPHOCYTES 14.9 %; MCH 34.2 pg (26.0-34.0); MCHC 35.4 g/dL (28.0-37.0); MCV 96.5 fL (80.0-100.0); MONOCYTES 4.9 %; MPV 7.1 fl. (7.2-11.1); NUCLEATED RBCS 0 /100WBC; PLATELET COUNT* 95 thou/uL (150-400); POLYS 79.8 %; RBC 3.16 mil/uL (4.50-6.00); RDW-CV 12.9 % (10.5-14.5); WBC 5.6 thou/uL (4.0-11.0)
--- NOTE | 2019-11-16 23:18 | CON ---
[address] [address] CONSULTATION Name: KEYLA LOPEZ Room: [address] IN M.R.#: [id number] Admission: 11/15/19 Attend Phys: Ramon Wright Discharge: Date of : 64 Report #: [id number] THIS REPORT FOR: //name// cc: Shai Silver Bradley L. DO ~ THIS REPORT FOR: //name// CC: Shai Villarreal DATE OF SERVICE: 11/16/2019 REQUESTING PHYSICIAN: Darien Andino DO INDICATION FOR CONSULTATION: Left lower lobe collapse. HISTORY OF PRESENT ILLNESS: This is a 59-year-old gentleman. He has a history of heavy alcohol intake. He is also an active smoker. The patient has previously been evaluated in this hospital for a right upper lobe cavitary lesion, this was noted towards the end of last year on his imaging and according to the records, he had previous imaging at an outside hospital or institution which did not show the same finding in summer. The patient's QuantiFERON Gold was intermediate, however, from the records, it appears to me that the impression was that the patient does not appear to have TB. At this time, the patient is admitted with an upper GI bleed. He has been having hematemesis. He has undergone an EGD. He also reports significant increase in shortness of breath and has anxiety and symptoms related to alcohol withdrawal as well. He has been coughing up thick white sputum. He has a moist cough. He was wheezing at the time of my examination. He also has had some chest pain with respiration and coughing. He had a high-grade fever up to 39 degrees Celsius yesterday. He had chills as well. At this time, does not report a runny nose or sore throat. There is no swelling of lower extremities and there is no calf pain. The patient answered to the negative for 12 questions for review of systems except as described above. PAST MEDICAL HISTORY: Right upper lobe cavitary lesion. See further discussion above, diagnosed in 2019. COPD, does not take oxygen at home, in fact, does not use any medications for COPD regularly at home. Previous echo showed normal left ventricular ejection fraction and right heart pressure around 30. Scoliosis, appendectomy, chronic back pain, has a alyssa in his back, alcoholism, peptic ulcer disease, portal hypertensive gastropathy, esophagitis, alcoholic seizures, macular degeneration. SOCIAL HISTORY: He is an active smoker, smokes a pack a day. There are various description of the amount of alcohol intake on the record, [place] [address] CONSULTATION Name: KEYLA LOPEZ Room: [address] IN ..#: [id number] Admission: 11/15/19 Attend Phys: Ramon Wright Discharge: Date of : 64 Report #: [id number] is that the patient has current significant likely heavy alcohol intake. No known history of illegal drug use. ALLERGIES: No known drug allergies. CURRENT MEDICATIONS: List in [place] reviewed. HOME MEDICATIONS: List in [place] reviewed. FAMILY HISTORY: There is no pertinent family history known at this time. PHYSICAL EXAMINATION: GENERAL: Alert, awake and oriented. VITAL SIGNS: Has a pulse of 82 and a blood pressure of 132/72. He has been saturating in the low 90s on room air. He briefly desaturated after he received propofol for EGD. He currently is on 3 liters nasal cannula, O2 saturation is up to 97%. Again, respiratory rate is around 20. He is afebrile with a temperature of 36.5. He did have a high-grade fever of 39.0 last night. HEENT: Head is normocephalic and atraumatic. Pupils are equal and reactive. There is no throat erythema. He does not have thrush in his throat. NECK: Does not show raised JVP, asymmetry, mass or lymph nodes. CHEST: Symmetrical expansion on inspection and palpation. On auscultation, there is a rattling mucus heard in his upper airways. There are also expiratory wheezes bilaterally. The patient does appear to be actively bronchospastic. HEART: Regular. There is no murmur. ABDOMEN: Soft and nontender. EXTREMITIES: Lower extremities show no edema, no calf tenderness. SKIN: However, is dry and intact. NEUROLOGICAL: Moves all extremities bilaterally equally and spontaneously with no focal deficit identified. LABORATORY DATA: The patient's chest x-ray done yesterday morning shows a radiopaque density, which is reduced in size compared with previous x-rays in the right upper lobe and findings consistent with COPD with no additional findings. There is a CT of the abdomen and pelvis, which shows the same. There is subsequent x-ray done last night, which shows new collapse of the left lower lobe. The collapse of the left lower lobe is persisting in the x-ray done this morning. The patient's lab work including CBC as well as chemistries, CBC shows a significant drop in hemoglobin from 15.1 yesterday to 10.8 today, platelet count also dropping in [facility] reviewed. Chemistries initially show creatinine elevated to 1.5 are reduced to 1.2 in [facility] reviewed. Hypokalemia noted. Alcohol level was 25. COVID-19 screen was negative. ASSESSMENT AND PLAN: 1. Left lower lobe collapse/mucus plugging. It is possible this is a component of the patient having inhaled vomitus or blood, which may be occluding the left [facility] [address] [place] [address] CONSULTATION Name: EUNKEYLA CAMEJO Tiffanie Room: [address] IN [facility].#: [id number] Admission: 11/15/19 Attend Phys: Ramon Wright Discharge: Date of : 64 Report #: [id number] lower lobe bronchus as well. Despite this, the fact that the patient is bronchospastic. I feel that the potential benefit considering the significant finding of giving him Mucomyst outweighs the risks and therefore, I did go ahead and order Mucomyst nebs for him. We will hope to be able to avoid a bronchoscopy, which will be technically difficult to perform. Considering that he has been having an upper gastrointestinal bleed and also has bronchospastic and is in alcohol withdrawal, if the finding fails to clear this may be needed later this week. I will also do a CT chest tomorrow to evaluate further. 2. Acute bacterial bronchitis/possible pneumonia. His COVID-19 screen is negative. He did have a high-grade fever yesterday. He is on Zosyn. I agree with the same. We will obtain a sputum culture. If he worsens, then I will consider broadening his antibiotic coverage further. 3. Cavitary lesion, right upper lobe. This is reduced in size by x-rays, is seen on CT end of last year, reported to not be present on outside imaging summer. With the CT chest tomorrow morning and then we will review CT chest tomorrow morning and then I will advise further. 4. Chronic obstructive pulmonary disease exacerbation. We be liberal with giving him steroids, especially because we are giving him Mucomyst as well. We will also order DuoNeb. Since he already had some hyperglycemia, I ordered an insulin sliding scale as well. 5. Acute upper gastrointestinal bleed. See discussion above. Recommend watching hemoglobin closely. There is a significant drop since yesterday, partly this is dilutional; recommend, also watching platelets closely. Gastroenterology service is on the case. 6. Hypokalemia, being replaced. 7. Fluid and electrolyte/mild renal acute insufficiency. Creatinine was mildly elevated yesterday returning to normal now. He is on normal saline. If he is able to take orally, then I would recommend having a low threshold of discontinuing normal saline soon in order to avoid development of fluid overload. Thanks for this consultation. <ELECTRONICALLY SIGNED> By: Lowell Arteaga MD 11/16/19 2318 1236 [id number] Arteaga MD /nt
[2019-11-17] VITALS (7 sets, daily range): BP systolic 115–131; BP diastolic 60–75
[2019-11-17 05:08] LABS: HEMATOCRIT 28.1 % (42.0-52.0); HEMOGLOBIN 10.1 gm/dL (14.0-18.0); MCH 34.5 pg (26.0-34.0); MCV 95.9 fL (80.0-100.0); MPV 7.8 fl. (7.2-11.1); NUCLEATED RBCS 0 /100WBC; PLATELET COUNT* 99 thou/uL (150-400); RBC 2.93 mil/uL (4.50-6.00); RDW-CV 12.9 % (10.5-14.5)
[2019-11-17 05:25] LABS: ALBUMIN 2.6 g/dL (3.4-5.0); CALCIUM 8.5 mg/dL (8.5-10.1); MAGNESIUM 1.8 mg/dL (1.8-2.4); POTASSIUM 3.4 mmol/L (3.5-5.1); TOTAL BILIRUBIN 0.5 mg/dL (<0.1-1.0); TOTAL PROTEIN 5.7 g/dL (6.4-8.2)
[2019-11-17 05:44] LABS: PREALBUMIN 13.4 mg/dL (18.0-35.7)
[2019-11-17 06:03] LABS: ABSOLUTE LYMPHOCYTES 0.2 thou/uL (0.8-5.3); ABSOLUTE MONOCYTES 0.1 thou/uL (0.0-1.2); ABSOLUTE NEUTROPHILS 4.7 thou/uL (1.6-8.1); ANISOCYTOSIS 1+; PLATELET ESTIMATE DECREASED; POIKILOCYTOSIS 1+
[2019-11-17 06:55] LABS: ESR (SEDRATE) 50 mm/hr (0-20)
[2019-11-17] MEDS ORDERED: PROTONIX40 M4 PO (17:10)
[2019-11-17] MEDS ORDERED: REGLAN 10 MG TA10 MG PO (17:10)
[2019-11-18 00:49] VITALS: BP 115/60
[2019-11-18 02:06] LABS: HEPATITIS B SURFACE AG Negative (Negative)
[2019-11-18 04:10] VITALS: BP 126/66
[2019-11-18 06:08] LABS: ABSOLUTE LYMPHOCYTES 0.6 thou/uL (0.8-5.3); ABSOLUTE MONOCYTES 0.5 thou/uL (0.0-1.2); ABSOLUTE NEUTROPHILS 4.4 thou/uL (1.6-8.1); BASOPHILS 0.2 %; HEMATOCRIT 27.3 % (42.0-52.0); HEMOGLOBIN 9.6 gm/dL (14.0-18.0); LYMPHOCYTES 10.4 %; MCHC 34.9 g/dL (28.0-37.0); MCV 97.4 fL (80.0-100.0); MONOCYTES 8.4 %; MPV 7.8 fl. (7.2-11.1); NUCLEATED RBCS 0 /100WBC; PLATELET COUNT* 132 thou/uL (150-400); RBC 2.81 mil/uL (4.50-6.00); RDW-CV 13.1 % (10.5-14.5); WBC 5.5 thou/uL (4.0-11.0)
[2019-11-18 06:23] LABS: ALBUMIN 2.6 g/dL (3.4-5.0); CALCIUM 8.2 mg/dL (8.5-10.1); CREATININE 1.1 mg/dL (0.6-1.3); MAGNESIUM 1.8 mg/dL (1.8-2.4); POTASSIUM 3.8 mmol/L (3.5-5.1); TOTAL BILIRUBIN 0.3 mg/dL (<0.1-1.0); TOTAL PROTEIN 5.6 g/dL (6.4-8.2)
[2019-11-18 08:32] VITALS: BP 140/65
[2019-11-18 12:08] VITALS: BP 126/67
[2019-11-18 20:00] VITALS: BP 134/75
[2019-11-19] VITALS: BP 122/71
[2019-11-19 04:00] VITALS: BP 136/83
[2019-11-19 05:24] LABS: ABSOLUTE LYMPHOCYTES 1.7 thou/uL (0.8-5.3); ABSOLUTE NEUTROPHILS 2.7 thou/uL (1.6-8.1); BASOPHILS 0.2 %; EOSINOPHILS 0.6 %; HEMATOCRIT 35.3 % (42.0-52.0); LYMPHOCYTES 30.4 %; MCH 34.1 pg (26.0-34.0); MCV 97.3 fL (80.0-100.0); MONOCYTES 18.9 %; MPV 7.4 fl. (7.2-11.1); NUCLEATED RBCS 0 /100WBC; POLYS 49.9 %; RBC 3.63 mil/uL (4.50-6.00); RDW-CV 13.3 % (10.5-14.5); WBC 5.5 thou/uL (4.0-11.0)
[2019-11-19 05:37] LABS: HEMOGLOBIN 12.4 gm/dL (14.0-18.0)
[2019-11-19 05:38] LABS: PLATELET COUNT* 215 thou/uL (150-400)
[2019-11-19 05:43] LABS: ALBUMIN 3.3 g/dL (3.4-5.0); CREATININE 1.3 mg/dL (0.6-1.3); MAGNESIUM 1.6 mg/dL (1.8-2.4); POTASSIUM 3.2 mmol/L (3.5-5.1); TOTAL BILIRUBIN 0.5 mg/dL (<0.1-1.0); TOTAL PROTEIN 6.9 g/dL (6.4-8.2)
--- NOTE | 2019-11-19 07:38 | CON ---
[address] [address] CONSULTATION Name: KEYLA LOPEZ Tiffanie Room: [address] [place] .R.#: [id number] Admission: 11/15/19 Attend Phys: Ramon Wright Discharge: Date of : 64 Report #: [id number] THIS REPORT FOR: //name// cc: Shai Silver Bradley L. DO ~ THIS REPORT FOR: //name// CC: Shai Irby DICTATED BY: Laura Adams [facility] DATE OF SERVICE: 11/15/2019 PRIMARY CARE PHYSICIAN: Shai Silver DO REASON FOR CONSULTATION: Nausea, vomiting, hematemesis, difficulty swallowing and painful swallowing. Please note, at the time of this dictation, the patient was seen and physically examined by myself. HISTORY OF PRESENT ILLNESS: This is a 59-year-old male who has been seen by us in the past, presents to the Emergency Room with nausea and vomiting and vomiting up blood. He states it was dark in color. He states his last drink was 2 years ago; however, his blood alcohol level was 25 when he came in. The patient was last seen by us back in 01/2019 for dysphagia, no odynophagia. At that time, he was noted to have herpetic esophageal ulcers that was treated with antiviral. He had a 3 cm hiatal hernia. He also had a moderate Schatzki's ring, in which he was dilated with a 10, 11, 12, 13.5 and 15 TTS dilator. At that time, he was to continue with his omeprazole 40 mg b.i.d. He states he has been taking that; however, at the time of this dictation, the patient is very drowsy and groggy and falls asleep during our conversation. He does state that he still is having some epigastric and chest tightness/discomfort, mainly with swallowing, he states. He has not had any more vomiting since he has been here. It appears that he has never had a colonoscopy either. ALLERGIES: No known drug allergies. MEDICATIONS FROM HOME: Include omeprazole 1 tablet b.i.d. PAST MEDICAL HISTORY: History of scoliosis, history of bleeding ulcers, portal hypertensive gastropathy, esophagitis, hiatal hernia, alcoholic seizures [place] [address] CONSULTATION Name: KEYLA LOPEZ Room: [address]#: [id number] Admission: 11/15/19 Attend Phys: Ramon Wright Discharge: Date of : 64 Report #: [id number] PAST SURGICAL HISTORY: He had Ye rods placed at age 19 and appendectomy. FAMILY HISTORY: Noncontributory. SOCIAL HISTORY: Continues to smoke. Denies any illegal drug use and alcohol use. He states past use; however, his blood alcohol level was 25. REVIEW OF SYSTEMS: Twelve-point review of systems is essentially negative except what is mentioned in the HPI. PHYSICAL EXAMINATION: VITAL SIGNS: Temperature 36.9, pulse 124, respirations 18, blood pressure 148/72. HEART: Tachycardic. LUNGS: Diminished, but clear. ABDOMEN: Soft, positive bowel sounds in all 4 quadrants with some epigastric and upper chest discomfort, noted to palpation. LABORATORY DATA: Hemoglobin is 15.1, white count is 5.3, platelets 177. BUN is 32, creatinine 1.5. His GFR is 48. Potassium on admission was 2.8, he is getting that replaced. Further labs are pending. Total bilirubin is 1.2, alkaline phosphatase 104, ALT 58 and his AST is 75. PT 10.4, INR is 1. Alcohol again is 25 and lipase was 136. IMPRESSION: 1. Nausea and vomiting. 2. Hematemesis. 3. Dysphagia. 4. Odynophagia. 5. Hepatic steatosis. 6. Hypokalemia. 7. History of alcohol abuse. PLAN: 1. EGD tomorrow with Dr. Andino. 2. Continue Protonix drip. 3. Further recommendations to be made once the procedure has been performed. Thank you for allowing us to participate in this patient's care. Please do not hesitate to call with any questions in regard to this consult. <ELECTRONICALLY SIGNED> By: Darien Andino DO 11/19/19 [id number] Andino DO /nt
[2019-11-19 08:09] VITALS: BP 131/75
[2019-11-19 11:01] VITALS: BP 131/75
[2019-11-19 12:17] VITALS: BP 131/75
== END 2019-11-19 13:56 | disposition home or self-care (01) | DRG 378 ==
LOC: M.ERS 00:33 → M.TBA-ER 01:46 → M.2W 02:42
PROVIDERS: Family Medicine; Internal Medicine; Internal Medicine Critical Care Medicine; Internal Medicine Gastroenterology; ADMIT Internal Medicine; ATTEND Internal Medicine
PROC: 0DJ08ZZ Inspection of Upper Intestinal Tract, Via Natural or Artificial Opening Endoscopic (ICD-10-PCS; principal; 2019-11-15)
DX: K26.4 Chronic or unspecified duodenal ulcer with hemorrhage (principal); N17.9 Acute kidney failure, unspecified; J44.1 Chronic obstructive pulmonary disease with (acute) exacerbation; T17.890A Other foreign object in other parts of respiratory tract causing asphyxiation, initial encounter; K31.5 Obstruction of duodenum; F10.239 Alcohol dependence with withdrawal, unspecified; I48.20 Chronic atrial fibrillation, unspecified; J98.19 Other pulmonary collapse; J44.0 Chronic obstructive pulmonary disease with (acute) lower respiratory infection; K22.11 Ulcer of esophagus with bleeding; E87.6 Hypokalemia; F10.229 Alcohol dependence with intoxication, unspecified; K76.0 Fatty (change of) liver, not elsewhere classified; J20.9 Acute bronchitis, unspecified; K44.9 Diaphragmatic hernia without obstruction or gangrene; Z20.828 Contact with and (suspected) exposure to other viral communicable diseases; Z90.49 Acquired absence of other specified parts of digestive tract; X58.XXXA Exposure to other specified factors, initial encounter; Y93.89 Activity, other specified; Y92.89 Other specified places as the place of occurrence of the external cause; Y99.8 Other external cause status